=== PATIENT | male | born 2000 | race Caucasian/White ===

== ENCOUNTER 2025-01-21 03:39 | Inpatient (IN) | payer MEDICARE, SELFPAY ==
[2025-01-20 21:37] VITALS: BP 90/65
[2025-01-20 22:00] VITALS: BP 93/72
[2025-01-20 22:06] VITALS: BMI 20.1
[2025-01-20 22:29] LABS: Hematocrit 27.2 % (39.0-52.0); Hemoglobin 9.1 g/dL (13.0-18.0); Mean Corp Hgb Conc. 33.5 g/dL (33.0-37.0); Mean Corpuscular Volume 97.8 fL (80.0-94.0); Nucleated Red Blood Cells % 0 % (-); Platelet Count 201 10^3/uL (130-400); Red Cell Dist. Width 13.4 % (11.5-14.5)
[2025-01-20 22:39] LABS: INR 1.09; PT 14.4 Sec (11.4-14.6)
[2025-01-20 22:42] LABS: ALT (SGPT) 19 U/L (0-50); AST (SGOT) 21 U/L (17-59); Albumin 4.2 g/dl (3.5-5.0); Alkaline Phosphatase 133 U/L (38-126); Blood Urea Nitrogen 73 mg/dl (9-20); Calcium 9.5 mg/dl (8.4-10.2); Carbon Dioxide 29 mmol/L (22-30); Chloride 87 mmol/L (98-107); Glucose 81 mg/dl (70-99); Potassium 5.4 mmol/L (3.5-5.1); Sodium 129 mmol/L (135-145); Total Protein 6.6 g/dl (6.3-8.2)
[2025-01-20 22:47] LABS: Ammonia < 9 umol/L (9-30)
[2025-01-20 22:54] LABS: Estimated Creatinine Clearance 7 ml/min; Troponin I 0.104 ng/ml; eGFR 4.69
[2025-01-20 23:00] VITALS: BP 93/66
--- NOTE | 2025-01-20 23:15 | ED.GENMED ---
History of Present Illness
General
Chief Complaint: Cardiac Symptoms
Source: patient
Exam Limitations: none
Time Seen by Provider: 01/20/25 22:54
History of Present Illness
History of Present Illness:
See MDM
Past History
Past History
ED Past Medical History: CHF and Other (ESRD)
ED Past Surgical History: None
Social History
Tobacco: Non-smoker
Alcohol: None
Phy Exam
Physical Exam
Physical Exam:
See MDM
Course
Orders/Labs/Results
Orders:
Orders
01/20/25 21:31
Electrocardiogram (*1) Urgent
Reason for Study: Chest Pain
EKG- Treatment ONCE
01/20/25 22:17
Complete Blood Count/With Diff Urgent
Comprehensive Metabolic Panel Urgent
Lactic Acid Q4H
Comment: WITH 1ST SET OF BLOOD CULTURES,CANCEL 2ND LACTIC ACID IF FIRST <2
NT-proBNP Urgent
Prothrombin Time Urgent
Troponin I Urgent
Blood Culture Urgent
KIMMIE Source: Blood/Venous
Specimen Description:
01/20/25 22:25
Ammonia Urgent
01/20/25 23:51
Lorazepam [Ativan] 1 mg PO NOW STA
01/21/25 00:00
CT Chest PE Study Urgent
Reason For Exam: SOB, tachycardic
01/21/25 01:43
Heparin 4,800 units IV NOW STA
Nursing to Place Non Medication Order As Directed
Physician Order: PTT 6 hours after initial start of Heparin infusion
01/21/25 01:45
Heparin 73768 Units/250 ml 25,000 units in 250 ml IV PER PROTOCOL
Weight to be used for heparin protocol in kilograms (kg):: 59.9
Protocol:: DVT/PE
PTT Goal Range to be used:: PTT 73 to 111 seconds
Order type:: Initial
INITIAL Infusion Dose (UNITS/KG/hr) & then follow protocol:: 18 units/kg/hr
Infusion Dose in UNITS/hr & then follow protocol (UNITS/hr):: 1,100
INFUSION RATE in mL/hr & then follow protocol (mL/hr):: 11
For DVT/PE algorithm, re-bolus for low PTT?: Yes
PTT less than or equal to 64 seconds:: Re-bolus 80 units/kg (max 10,000units). Increase by 200 units/hr
(+ 2mL/hr)
PTT 64.1 to 72.9 seconds:: Re-bolus 40 units/kg (max 5,000 units). Increase by 100 units/hr
(+ 1mL/hr)
PTT 73 to 111 seconds:: Target Range. No change in rate.
PTT 111.1 to 130.9 seconds:: Decrease rate by 100 units/hr (- 1 mL/hr)
PTT 131 to 199.9 seconds:: HOLD for 1 hr. Then decrease by 200 units/hr (- 2mL/hr)
PTT greater than or equal to 200 seconds:: HOLD for 2 hrs & Notify Provider. Then decrease by 200 units/hr
(- 2mL/hr)
Lab follow-up:: Each change, PTT q6h until 2 consecutive are therapeutic. Then
PTT daily.
01/21/25 01:46
Add On- LAB Urgent
Tests Added?: APTT
01/21/25 01:59
Heparin 4,800 units IV PRN PRN
01/21/25 02:00
Heparin 2,400 units IV PRN PRN
Abnormal Lab Results
01/20/25 01/20/25
22:17 22:25
RBC 2.78 L 10^6/uL
(4.70-6.10)
Hgb 9.1 L g/dL
(13.0-18.0)
Hct 27.2 L %
(39.0-52.0)
MCV 97.8 H fL
(80.0-94.0)
MCH 32.7 H pg
(27.0-31.0)
MPV 10.6 H fL
(7.4-10.4)
Absolute Lymphs (auto) 0.9 L 10^3/uL
(1.2-3.4)
Lymphocytes % 15.5 L %
(20.5-51.1)
Sodium 129 L mmol/L
(135-145)
Potassium 5.4 H mmol/L
(3.5-5.1)
Chloride 87 L mmol/L
(98-107)
BUN 73 H mg/dl
(9-20)
Creatinine 13.7 H* mg/dL
(0.7-1.3)
Alkaline Phosphatase 133 H U/L
(38-126)
Ammonia < 9 L umol/L
(9-30)
Troponin I 0.104 H* ng/ml
01/20/25 22:17
01/20/25 22:17
Vital Signs
Initial and Last Documented VS:
Initial Vital Signs
Temp Pulse Resp BP Pulse Ox
97.5 F 108 22 90/65 100
01/20/25 21:37 01/20/25 21:37 01/20/25 21:37 01/20/25 21:37 01/20/25 21:37
Last Documented Vital Signs
Temp Pulse Resp BP Pulse Ox
97.5 F 108 21 93/66 100
01/20/25 21:37 01/21/25 00:51 01/20/25 23:45 01/20/25 23:00 01/20/25 23:17
MDM/Problems Addressed
Differential Diagnosis Includes:
Note:
CHIEF COMPLAINT(S)
Shortness of breath, chest pressure, persistent cough, and numbness in fingertips.
HISTORY OF PRESENT ILLNESS
The patient is a 24-year-old male with a history of chronic kidney disease, currently undergoing peritoneal dialysis at home. He presents with complaints of a persistent cough, chest pressure, and difficulty breathing lasting for two weeks. The
patient describes the sensation as feeling like he has run a mile continuously, and his heart rate feels elevated constantly. He reports the cough is accompanied by chest pain and pressure that make it difficult to breathe. Additionally, the patient
has been experiencing numbness in his fingertips for several months. He expresses concern about not receiving adequate care, highlighting his dissatisfaction with his current healthcare providers at [facility] not thoroughly investigating his
symptoms. He mentions a past episode of fluid build-up in his lungs about a year and a half ago that required admission for increased dilaysis. The patients recent hemoglobin was noted at 9.1 g/dL, and potassium levels were elevated, which is
typical considering his renal condition. He has been experiencing shortness of breath more frequently and reports that he used to manage stairs without issues, but now becomes breathless easily, which has changed in the past four weeks. There is no
reported history of black or red stools to suggest gastrointestinal bleeding.
PAST MEDICAL AND SURGICAL HISTORY
- Chronic kidney disease with current peritoneal dialysis
- History of anemia managed with erythropoietin
- Past fluid build-up in the lungs requiring intervention
CHRONIC MEDICAL CONDITIONS SIGNIFICANTLY AFFECTING CARE
Chronic conditions affecting care:
- Chronic kidney disease
- Anemia
- Electrolyte imbalance related to renal dysfunction
SOCIAL DETERMINANTS AFFECTING HEALTH
The patient reports dissatisfaction with current healthcare providers, citing ineffective care and poor communication, which contributes to his sense of not being adequately treated.
PHYSICAL EXAM
General: Weak and frail
Skin: Warm, dry. Ashen color
Head: Normocephalic, atraumatic
Neck: Appears supple, trachea midline.
Eyes, Ears, Nose, Mouth, and Throat: Moist mucous membranes
Cardiovascular: No signs of cyanosis. Tachycardic
Respiratory: Respirations are non-labored. Lungs appear clear
Abdomen: Non-distended
Musculoskeletal: No deformities
Neurological: No focal neurological deficit observed.
Psychiatric: Cooperative, appropriate mood and affect.
PLAN
A chest X-ray has been ordered, with consideration of a CT scan to evaluate for pulmonary embolism or other causes of dyspnea due to atypical lung examination findings. The likelihood of admission for further monitoring and consultations with
nephrology and cardiology. Plan includes potential adjustment of dialysis to address possible fluid overload and further evaluation of heart function due to concern of heart failure exacerbation secondary to renal condition.
Patient states he has not made urine in 3 years. Because of this, we will obtain CT regardless of the IV contrast
DIFFERENTIAL DIAGNOSIS
The Differential Diagnosis includes, in no particular order and is not limited to:
- Pulmonary embolism
- Congestive heart failure exacerbation
- Pneumonia
- Fluid overload
- Anemia-related fatigue
- Electrolyte imbalance
- Asthma
- Anxiety-related shortness of breath
- Interstitial lung disease
- Cardiorenal syndrome
SUMMARY OF ENCOUNTER
The patient was seen due to concerns of shortness of breath, chest pressure, and symptoms potentially related to chronic renal failure and associated complications. The patient expressed dissatisfaction with current treatment and healthcare provider
approach, prompting an emergency evaluation. [place] interventions included discussions about management and potential changes in dialysis, pending imaging to further assess lung and cardiac status, and laboratory evaluations to elucidate contributing
factors.
DISPOSITION
Admit for further evaluation and treatment.
MANAGEMENT OF THE PATIENTS CARE WAS DISCUSSED WITH
Consultations with nephrology and cardiology planned to evaluate and manage the patients complex situation, considering significant findings and chronic kidney disease management needs.
MEDICAL DECISION MAKING
- Number and Complexity of Problems Addressed:
Chronic conditions affecting care: Chronic kidney disease, anemia, electrolyte imbalance related to renal dysfunction.
- Data:
Category 1
- Laboratory tests pending, such as cardiac markers.
- Chest x-ray ordered, with possible CT scan to follow.
Category 2
- Review of prior external records indicated issues of fluid in lungs and chronic heart-related complications.
Category 3
- Discussion of management with nephrology and cardiology regarding chronic kidney disease complications and potential need for increased dialysis or cardiac evaluation.
- Risk:
Consideration of Admission/Observation: Escalation of care considered due to the complexity and risk posed by the patients symptoms and existing comorbid conditions. The patient is deemed safe for admission, with workup revealing significant issues
needing inpatient care for fluid overload management, cardiac monitoring, and potential adjustment of dialysis regimen as symptoms are not controlled in outpatient settings.
DIAGNOSIS
- Congestive heart failure exacerbation, likely cardiorenal syndrome (ICD-10: I50.9)
- Chronic kidney disease stage 5, on dialysis (ICD-10: N18.6)
- Anemia of chronic disease (ICD-10: D63.1)
- Dyspnea, unspecified (ICD-10: R06.00)
SUMMARY OF ENCOUNTER
The patient, a 24-year-old male with a history of chronic kidney disease and anemia, presented with shortness of breath and chest pain. An elevated troponin and BNP were noted, likely related to his renal disease. Due to persistent symptoms, a CT
scan was performed, revealing evidence of pulmonary embolism. Though possibly chronic, the patients symptomatic presentation warranted initiation of IV heparin.
DISPOSITION
Admit for further evaluation and treatment.
ASSESSMENT
The patient likely suffers from a pulmonary embolism in the setting of chronic kidney disease and significant anemia, potentially exacerbating the patients current symptoms.
EMERGENCY TREATMENTS ADMINISTERED
Initiated IV heparin for suspected pulmonary embolism.
MANAGEMENT OF THE PATIENTS CARE WAS DISCUSSED WITH
Consultations planned with nephrology and cardiology for comprehensive management of renal disease complications and acute pulmonary issues.
PLAN
Continue IV heparin and admit for further monitoring and management. Engage nephrology and cardiology consultations for assessment and management of chronic kidney disease, anemia, and cardiopulmonary complications.
INDEPENDENT REVIEW OF LABS AND INTERPRETATION OF TESTS
My independent review of cardiac enzymes showed elevated troponin levels.
My independent review of BNP indicated elevated levels consistent with chronic kidney disease effects.
My independent interpretation of the CT scan confirms the presence of pulmonary embolism.
MEDICATION RECONCILIATION
IV heparin initiated for anticoagulation therapy to address the pulmonary embolism.
MEDICAL DECISION MAKING
- Complexity of Data Reviewed: Chronic conditions affecting care include chronic kidney disease, anemia, and electrolyte imbalance related to renal dysfunction. Differential diagnoses considered were pulmonary embolism, congestive heart failure
exacerbation, pneumonia, fluid overload, anemia-related fatigue, electrolyte imbalance, asthma, anxiety-related shortness of breath, interstitial lung disease, and cardiorenal syndrome.
- Data:
Category 1
Reviewed lab tests: troponin, BNP.
Category 3
Consulted with nephrology and cardiology.
DIAGNOSIS
- Pulmonary embolism (ICD-10: I26.99)
- Chronic kidney disease stage 5, on dialysis (ICD-10: N18.6)
- Anemia of chronic kidney disease (ICD-10: D63.1)
*Pulse Oximetry
SaO2: 100
Oxygen Mode of Delivery: Room air
Patient hypoxic: no
*Critical Care Note
Total Time (30-74mins, 75-104mins- exclusive of procedures): 33 min
comment:
The high probability of a clinically significant, sudden or life threatening deterioration of the cardiopulmonary system(s) required my full and direct attention, intervention and personal management. The aggregate critical care time was 33 minutes.
This time is in addition to time spent performing reported procedures but includes the following:
[x] Data Review and interpretation
[x] Patient assessment and monitoring of vital signs
[x] Documentation
[x] Medication orders and management
ED Attending Note
-
Portions of this chart may have been created with voice recognition software.� Occasional wrong word or��sound alike� substitutions may have occurred due to the inherent limitations of voice recognition software.
Discharge Plan
Departure
Patient Disposition: Admit
Date of Disposition: 01/21/25
Time of Disposition: 01:45
Admit to: Med/Surg and Telemetry
Presentation/result/management discussed w/ accepting MD/DO: Hospitalist
Discharge Problem:
Pulmonary embolism, Acute hyperkalemia
Referrals:
UNKNOWN - PT DOES,NOT KNOW [Family Provider]
Interventions
Interventions:
*Risk Screen - Suicide Last Done: 01/20/25 21:37
*General Assessment Last Done: 01/20/25 21:37
*Neglect/Abuse Screening Last Done: 01/20/25 21:37
*ED- Fall Risk Assessment Last Done: 01/20/25 22:04
*ED COVID-19 Vaccine History Last Done: 01/20/25 21:37
*ED Influenza Vaccine History Last Done: 01/20/25 21:37
ED- Pulmonary Assessment Last Done: 01/20/25 21:58
ED- Cardiac Assessment Last Done: 01/20/25 21:58
Discharge Date and Time
Print Language: KYRGYZ
[2025-01-21] VITALS (17 sets, daily range): BP systolic 70–106; BP diastolic 45–71; BMI 19.2
[2025-01-21] MEDS: ATIVAN 1 MG PO (00:11)
[2025-01-21] MEDS: SUBLIMAZE 25 MCG IV (02:12)
[2025-01-21] MEDS: HEPARIN 4800 UNITS IV (02:14)
[2025-01-21] MEDS: HEPARIN 25000 UNITS/250 ML IV (02:19)
--- NOTE | 2025-01-21 03:29 | HPS.HSE ---
Family Physician
-
Family Physician: NOT KNOW UNKNOWN - PT DOES
Chief Complaint
-
CALDWELL, Fatigue
History of Present Illness
Patient is a 24y M with PMH significant for ESRD and HFrEF who presents to ED complaining of worsening CALDWELL and fatigue. Patient has been cared for at [facility] and decided to present to for an alternate opinion. He has been dialysis
dependent for much of his life. He is s/p prior renal transplant which lasted for about 4 years (failed due to non-compliance with antirejection med regimen). He was started on HD again following that and converted to PD about 2 1/2 months ago.
Patient notes that he developed cardiomyopathy / CHF with LVEF of about 20%. Patient indicates that this was attributed to his hemodialysis and thus the change to PD.
History from the patient at this time is somewhat limited by his willingness to participate. He notes that he is extremely tired and is agitated / aggravated by questioning.
Medical History
Past Medical History
Past Medical History: Reports Other
Additional Past Medical History:
ESRD ([facility]) - HD dependent, Renal transplant (4 years), HD dependent, PD dependent (past 2 1/2 months)
HFrEF (reportedly 20% LVEF)
Anxiety / Depression
Malnutrition
History of PE s/p 6 months of Eliquis
Past Surgical History: Reports Other
Additional Past Surgical History:
Renal Biopsies x 3
Renal Transplant
Multiple Tunneled HD Catheters
LUE AVF
Ligation of AVF
Sinus Surgery
Social History
Tobacco: Vaping (Daily vape use.)
Alcohol: None
Drug: Other (Medical marijuana card with regular / daily use.)
Family History
Family History: Not pertinent
Allergies / Home Medications
Allergies reflects when Allergies were last updated in [employer].
Home Medications with original date entered in [employer]
Allergy/Medication List:
Patient is unable to state his current medications.
No list available and he is currently unable to access his [facility] portal.
Review of Systems
-
History Source: Patient
A 12 point ROS was completed and negative except as noted: Yes
Constitutional: Reports Fatigue; Denies Fever or Chills
EENT: Denies Sore Throat
Respiratory: Reports Trouble Breathing; Denies Cough
Cardiac: Reports Palpitations; Denies Chest Pain, Diaphoresis or Syncope
Abdomen/GI: Denies Abdominal Pain, Nausea, Vomiting or Diarrhea
Musculoskeletal: Denies Joint Pain or Edema
Neurological: Reports Dizzy and Weakness; Denies Headache
Psych: Reports Depression and Anxiety
Physical Exam
Vital Signs
Vital Signs
Temp Pulse Resp BP Pulse Ox
97.5 F 102 20 93/66 100
01/20/25 21:37 01/21/25 02:30 01/21/25 02:30 01/20/25 23:00 01/20/25 23:17
Physical Exam
General: Other (24y chronically ill-appearing gentleman. Sleeping comfortably. Somewhat restless / agitated when awakened - but falls quickly back to sleep when undisturbed.)
HEENT: Other (Neck supple. Dry MM. No JVD.)
Respiratory: Clear; No Wheezes, Rales or Rhonchi
Cardiac: S1/S2 and Tachycardia; No Murmur
GI: Other (Tenderness LLQ. PD catheter in place without erythema / induration at insertion.)
Musculoskeletal: No Clubbing, No Cyanosis and No Edema
Neuro: AO x 3 and Nonfocal/grossly intact
Laboratory Results
-
01/20/25 22:17
01/20/25 22:17
Laboratory Results
PT 14.4 Sec (11.4-14.6) 01/20/25 22:17
INR 1.09 01/20/25 22:17
APTT Cancelled 01/21/25 03:22
Lactic Acid 1.2 mmol/L (0.7-2.0) 01/20/25 22:17
Total Bilirubin 0.6 mg/dl (0.2-1.3) 01/20/25 22:17
AST 21 U/L (17-59) 01/20/25 22:17
ALT 19 U/L (0-50) 01/20/25 22:17
Alkaline Phosphatase 133 U/L (38-126) H 01/20/25 22:17
Troponin I 0.104 ng/ml H* 01/20/25 22:17
Impression/Plan
-
A/P: Patient is a 24y M with PMH significant for ESRD on PD, HFrEF and anxiety / depression who presents to ED complaining of CALDWELL and fatigue.
LLL Pulmonary Embolism
- Admit for further evaluation and treatment.
- Based on CT report, current SpO2, etc - suspect that this represents residual / chronic thrombosis.
- Patient reports prior PE treated with 6 months of Eliquis.
- Continue IV heparin for now.
- Check Echo.
- May benefit from chronic anticoagulation therapy.
- Suspect there are other etiologies for his presenting complaints of CALDWELL and fatigue.
ESRD
- Long-standing ESRD on HD and changed to PD about 2 1/2 months ago.
- Ascites seen on CT scan c/w PD therapy.
- Labs noted with multiple electrolyte derangements.
- Prior h/o renal transplant which lasted about 4 years and failed due to non-compliance with antirejection med regimen.
- Nephrology evaluation for dialysis needs during acute stay.
- Follow I/Os, daily weights, etc.
Chronic HFrEF
- ? acute / subacute component resulting in CALDWELL / fatigue.
- Patient reports EF of 20%. Update Echo. Send to [facility] for records for review.
- Seems likely that recent increase in symptoms correlates with change to PD and ? less efficient dialysis.
- Cardiology evaluation for additional recommendations.
Abnormal Troponin
- Unknown type. Unknown baseline in this patient with ESRD.
- EKG with T wave inversions / NSST-T changes in lateral leads. No prior tracings here for comparison.
- Follow troponin to peak.
- Cardiology evaluation as noted above.
Anemia
- Suspect anemia of chronic disease / CKD - but no prior values for comparison.
- Follow H&H for any changes.
Generalized Anxiety / Depression
- Significant component of anxiety. Ativan PRN for now.
- Review medications in AM when able and resume any psychotropic medications.
- Consider formal Psych evaluation.
Continuity of Care
- Send for records from [facility] for review.
- Need formal med rec with Pharmacy in AM.
- Significant gaps in known care plan, history, etc that need to be addressed.
DVT Prophylaxis: On therapeutic heparin at present.
Code Status: Full
--- NOTE | 2025-01-21 06:15 | PTCARENOTE ---
Pt received from ED on a stretcher. Pivoted from stretcher to bed; weak and dyspneic on exertion. Pox 92-98% on room air, resp 18-22. Hypotensive 85/61 with MAP 69. Sinus tachycardia on telemetry with rates in low 100's. Complaining of constant
left-sided chest pain radiating to his back, exacerbated by deep breaths; pain has been persistent for 2 weeks. Heparin drip infusing at 1100 units/hr via right upper arm peripheral site. Messaged house provider for pain med request. Pt oriented to
the room. Call ortega in reach. Bed in lowest position. Continuing to monitor
[2025-01-21] MEDS: ROXICODONE 5 MG PO (06:47)
[2025-01-21 08:09] LABS: APTT 95.5 Sec (23.4-35.0)
--- NOTE | 2025-01-21 08:19 | PTCARENOTE ---
Assumed care of patient this AM. Patient arrived to unit 6AM. Patient arrived with heparin drip infusing at 1100units 11mls/hr. for PE. PTT assessment at 8:15 95.5. Next PTT at 14:15. Patient is drowsy but arousable. Easily irritated by
questions. Report left sided chest pain which radiates to the back. Pain was 10/10 one time roxicodone given pain is now 6/10. Patient is on RA with sao2 99% denies shortness of breath while in bed. Lungs clear but diminished with shallow breath
sounds. SR with HR 90-low 100's. Soft BP's 90/53. Afebrile. Will continue to monitor frequently.
[2025-01-21 08:30] LABS: Troponin I 0.095 ng/ml
--- NOTE | 2025-01-21 08:35 | CON.CAR ---
Addendum entered and electronically signed by Wero Celestin MD 01/21/25 10:31:
If no other etiology found for his chest pain, we could empirically treat for pericarditis.
Addendum entered and electronically signed by Wero Celestin MD 01/21/25 10:28:
I saw and examined the patient.
The SIDING INSTALLER's note was reviewed and I agree with the note.
Comment:
24-year-old man with ESRD status post failed renal transplant, resumed on dialysis (initially hemodialysis but switched to peritoneal 2 months ago), HFrEF (reported EF 20%), prior PE who presents with dyspnea on exertion and fatigue. He gets all of
his care at [facility] and sees cardiology there (Dr. Jc). He has had 2 hospitalizations in their health system in the past 1 month for similar symptoms and he says they did not do any workup and just discharged him. He is here for a
second opinion. His main complaint is dyspnea with minimal exertion and fatigue. He tells me he does not take any heart medications. He was previously on midodrine but was told to stop taking this a few months ago because his blood pressures were
good. He has pleuritic, positional chest pain at rest.
Physical exam: uncomfortable appearing, regular rate/rhythm, no murmurs/rubs/gallops, clear lungs bilaterally, no lower extremity edema
Labs reflect ESRD. Lactate normal. proBNP >27k. troponin 0.104 -> 0.095. TSH 2.27.
ECG: sinus tachycardia with first-degree AV block, borderline LVH, incomplete LBBB, long QT (QTc 482 ms) --no prior for comparison but unchanged while he has been here
Cardiomyopathy: we have requested records from [facility]. Fortunately he does not appear to be in a CHF exacerbation or low output heart failure. Suspect GDMT is limited by baseline hypotension. Check echo on Thursday.
Chest pain: pleuritic and positional. Troponin elevation is normal for his end-stage renal disease. ECG nonischemic and not consistent with pericarditis. CT PE negative for acute PE. Very low suspicion for ACS. Okay to stop trending troponins
as it has already downtrended. Pain control per primary team.
Pulmonary embolism: CT with no acute PE. Patient is on IV heparin. Pulmonary consulted.
Original Note:
Consultation
Consultation Request
Date/Time Consultation Requested: 01/21/2025 6a
Date/Time Consultation Performed: 01/21/25 8:30a
Requesting Provider: Dr. Keys
Performing Provider: AARON Man for Dr. Celestin
Reason for Consultation: cardiomyopathy
Medical History
-
Chief Complaint: CALDWELL and fatigue
History of Present Illness:
Mr. Lantigua is a 24 yo male with ESRD status post renal transplant 4 years ago (failed due to noncompliance with anti-rejection medications) resumed HD and switched to PD 2 months ago, PD dependent, cardiomyopathy with HFrEF 20% (all of his care has
been at [facility]), history of PE treated with Eliquis for 6 months (unsure of when PE occurred), anxiety/depression, and chronic anemia, who presents to the ER with complaints of dyspnea on exertion and fatigue for 2 weeks. He came to [facility]
for an alternate opinion. Chest CT negative for acute pulmonary embolism and he is admitted to the hospitalist service for further evaluation and treatment. We are consulted for cardiomyopathy/chronic HFrEF, abnormal troponin in the setting of
ESRD, EKG with nonspecific ST/T changes and no prior EKG for comparison. Records from [facility] system have been requested. He c/o left sided chest pain that is constant. 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
since his BP was stable. He is a poor historian and is unable to provide his medications or medical history.
Chest CT: No evidence of acute PE, probable sequelae of remote/chronic PE in the medial left lung base subsegmental pulmonary artery, cardiomegaly with LV dilatation, no PNA, mild upper abdominal ascites.
Past Medical History
Past Medical History: Other (As above)
Past Surgical History: Other (As above)
Social History
Tobacco: Smoker (Daily vaping)
Drug: Marijuana (Medical marijuana card with daily use)
Personal: Single
Living: With Family (dad)
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
Family History
Family History: Reviewed & Not Pertinent
Allergies / Home Medications
Allergy/AdvReac Type Severity Reaction Status Date / Time
metoclopramide (From Reglan) Allergy Unknown Verified 01/20/25 21:50
prochlorperazine (From Allergy Unknown Verified 01/20/25 21:50
Compazine)
diphenhydramine (From AdvReac Unknown Verified 01/20/25 21:50
Benadryl)
�Medication �Instructions �Recorded �Confirmed �Type
Unobtainable 01/21/25 01/21/25 History
Review of Systems
-
History Source: Patient
All other systems: Negative unless noted
Physical Exam
Vital Signs
Temp Pulse Resp BP Pulse Ox
97.7 F 83 16 90/53 94
01/21/25 06:20 01/21/25 08:15 01/21/25 08:15 01/21/25 08:10 01/21/25 08:15
Lab Results
01/20/25 22:17
01/20/25 22:17
Troponin I 0.095 ng/ml H* 01/21/25 07:27
Hqr-K-Kzkyqmzzgvh Pept > 35522 pg/ml 01/20/25 22:17
Physical Exam
General: Other (appears chronically ill)
HEENT: Normocephalic
Respiratory: Clear and Non Labored Respirations
Cardiac: S1/S2 and Regular Rhythm (tachycardia low 100s)
Breast: Deferred by me
GI: Soft, Non Tender and Normal Bowel Sounds
Rectal: Deferred by Provider
Genito-urinary: No Costovertebral Tender
Musculoskeletal: No Clubbing, No Cyanosis and No Edema
Skin: Warm and Dry
Neuro: AO x 3 (keeps his eyes closed during interview, agitated from answering questions and tearful c/o chest pain)
Hematologic/Lymphatic: No Lymphadenopathy
Psych: Calm
Impression / Plan
-
Cardiomyopathy/HFrEF - EF 20% by patient report.
- appears euvolemic, volume managed by PD.
- he does not know his prior medications, admits to stopping midodrine 4 months ago as instructed by his neurologist.
- request records from [facility].
- check an echo.
- he does not weigh himself at home.
- GDMT likely limited due to ESRD and hypotension at baseline.
H/o pulmonary embolism - unsure of timing and was taking Eliquis.
- currently on IV heparin.
- Pulmonary consulted.
ESRD - PD dependent currently, switched from HD, unsure of timing.
- Status post renal transplant 4 years ago, failed due to noncompliance with antirejection medications and now PD dependent.
- Followed by nephrology at [facility].
- Nephrology consulted here.
Abnormal troponin - initial troponin 0.104, then 0.095.
- already trended down.
- c/o constant left chest pain, worse with palpation/movement.
- in the setting of ESRD.
- EKG with nonspecific ST/T changes lateral, no comparison available, records requested.
Anemia - acute on chronic.
- follow.
Anxiety/depression - chronic, unsure if taking meds as an outpatient.
Data Reviewed
-
EKG: Tracing Personally Visualized and interpreted (Sinus tachycardia with first-degree AV block, incomplete LBBB, ST and T wave abnormality lateral, QTc 480ms)
CT Scan: Report Reviewed by me (Chest: No evidence of acute PE, probable sequelae of remote/chronic PE in the medial left lung base subsegmental pulmonary artery, cardiomegaly with LV dilatation, no PNA, mild upper abdominal ascites)
[2025-01-21 09:01] LABS: Iron 69 ug/dl (49-181)
[2025-01-21 09:02] LABS: Ferritin 846.0 ng/ml (17.9-464.0)
[2025-01-21 09:10] LABS: Total Iron Binding Capacity 211 ug/dl (261-462)
[2025-01-21 09:17] LABS: Vitamin B12 564 pg/ml (239-931)
--- NOTE | 2025-01-21 10:07 | W.PN.UPDATE ---
Update Note
Progress Note Update
Seen and admitted by Dr. Keys this morning.
Patient with history of single functioning kidney from apparently and had FSGS of the functioning kidney and needed transplant which was given by his father and unfortunately got rejected. He went on hemodialysis after that and is switched to
peritoneal dialysis 2 months ago. He also had heart failure with reduced EF. He had history of prior PE treated with anticoagulation.
Patient normally follows in [facility] but now presented here for the first time. He does not remember all the medication he normally takes but he is going to check his patient portal and let us know.
His predominant symptom was extremely short of breath with minimal exertion. Complaints of chest pains and abdominal pains especially worse with coughing.
Chest CT showed possible sequela of chronic left lower lobe PE and started on IV heparin. He blood pressure on the lower side unclear what his baseline is. Systolic more than 90 this morning. Not tachycardic now. Consult pulmonary for the need
of further anticoagulation.
Cardiology and nephrology consults pending.
[2025-01-21 10:33] LABS: Folate 4.6 ng/ml (2.76-20)
[2025-01-21 10:35] LABS: Glycohemoglobin (HgbA1c) 5.1 % (4.0-5.9)
--- NOTE | 2025-01-21 11:03 | PTCARENOTE ---
Lantus 20 units given as ordered. Insulin drip discontinued. Last BS 120. Patient had breakfast and meal insulin. Will recheck BS at 11:30. Most likely patient will be d/c to home today.
--- NOTE | 2025-01-21 11:27 | W.CON.NEPH ---
Consultation
-
Date/Time Consultation Requested: 01/21/25 0608
Date/Time Consultation Performed: 01/21/25 1127
Requesting Provider: Kade Ron
Performing Provider: Luma Montanez
Reason for Consultation: ESRD on PD
Medical History
-
Chief Complaint: SOB
History of Present Illness:
24y M with PMH significant for ESRD and HFrEF 20% who presents to ED complaining of worsening CALDWELL and fatigue. Patient has been cared for at [facility] and decided to present to for an alternate opinion.
He reports on dialysis since age of 16 from FSGS, subsequently received kidney transplant donated by for his father however due to his noncompliance it only worked for 2-3 years and started on hemodialysis within last 1 year. However with his CHF
symptoms felt that his AV fistula was the reason and hence was ligated and patient got switched to PD around 2.5 months ago. Also note he has low blood pressures previously was on midodrine. His home unit is in [place]. Most of his doctors are
at [facility], infact had 2 admits in last 1month. Also noted from the staff that he has been asking for pain medications. He complains about chest pain, shortness of breath, abdominal discomfort. No fevers or coughing or chills. He has no urine
output for years. His last PD was day before night uses cycler all 2.5 with 2 L of fluid volume, extreneal as last fill to avoid pain. We do not have his medication list currently. A CT chest was obtained and shows sequelae of PE. He was
started on heparin drip. Records request sent to [facility]. Nephrology asked to see him for resuming PD.
Past Medical History
ESRD (FSGS) - HD dependent, Renal transplant (4 years), HD dependent, PD dependent (past 2 1/2 months),
HFrEF (reportedly 20% LVEF)
Anxiety / Depression
Malnutrition
History of PE s/p 6 months of Eliquis
Past Surgical History: Other (Renal Biopsies x 3 Renal Transplant Multiple Tunneled HD Catheters LUE AVF Ligation of AVF Sinus Surgery)
Social History
Tobacco: Smoker
Alcohol: None
Drug: Marijuana ([facility])
Living: With Family (father)
Family History
no ckd
Allergies / Home Medications
Allergy/AdvReac Type Severity Reaction Status Date / Time
metoclopramide (From Reglan) Allergy Unknown Verified 01/20/25 21:50
prochlorperazine (From Allergy Unknown Verified 01/20/25 21:50
Compazine)
diphenhydramine (From AdvReac Unknown Verified 01/20/25 21:50
Benadryl)
�Medication �Instructions �Recorded �Confirmed �Type
Unobtainable 01/21/25 01/21/25 History
Review of Systems
-
All other systems: Negative unless noted
Physical Exam
Vital Signs
Vital Signs
Temp Pulse Resp BP Pulse Ox
97.5 F 108 29 89/58 98
01/21/25 11:00 01/21/25 11:00 01/21/25 11:00 01/21/25 10:19 01/21/25 11:00
Lab Results
WBC 5.9 10^3/uL (4.8-10.8) 01/20/25 22:17
RBC 2.78 10^6/uL (4.70-6.10) L 01/20/25 22:17
Hgb 9.1 g/dL (13.0-18.0) L 01/20/25 22:17
Hct 27.2 % (39.0-52.0) L 01/20/25 22:17
Plt Count 201 10^3/uL (130-400) 01/20/25 22:17
Sodium 129 mmol/L (135-145) L 01/20/25 22:17
Potassium 5.4 mmol/L (3.5-5.1) H 01/20/25 22:17
Chloride 87 mmol/L (98-107) L 01/20/25 22:17
Carbon Dioxide 29 mmol/L (22-30) 01/20/25 22:17
BUN 73 mg/dl (9-20) H 01/20/25 22:17
Creatinine 13.7 mg/dL (0.7-1.3) H* 01/20/25 22:17
eGFR 4.69 01/20/25 22:17
Glucose 81 mg/dl (70-99) 01/20/25 22:17
Calcium 9.5 mg/dl (8.4-10.2) 01/20/25 22:17
Lbc-X-Yfjakdmoyir Pept > 38360 pg/ml 01/20/25 22:17
Albumin 4.2 g/dl (3.5-5.0) 01/20/25 22:17
Physical Exam
General: Awake, Alert, Oriented, AOx3, No Distress and Nontoxic
HEENT: EOMI, Anicteric, Conjunctivae Clear and Facial Symmetry
Respiratory: Clear, Normal Excursion and Nonlabored Respirations
Cardiac: S1/S2, Regular Rate/Rhythm and Murmur
Breast: Deferred by me
Abdomen: Soft, Nontender and Nondistended
Rectal: Deferred by Provider
Musculoskeletal: No Cyanosis and Edema (trace)
Skin: No Rash
Neuro: Nonfocal/Grossly Intact
Psych: Appropriate
Vascular Access: Other (left abd PD catheter clean )
Data Reviewed
-
Labs: Labs Reviewed by me and Discussed with Patient
Assessment/Plan
-
IMP:
LLL Pulmonary Embolism-chr
ESRD on PD-[place]
HYponatremia
Hyperkalemia
Hypotension
Prior h/o renal transplant which lasted about 4 years and failed due to non-compliance
Chronic HFrEF EF 20%
Abnormal Troponin
Anemia
Generalized Anxiety / Depression
Plan:
A/w sob CT noted chr PE, recent switch to PD due to suspected worsneing CHF and AVF ligated
no sig hypervolemia on exam
resume PD all 2.5, Q4h exchange and FV 2lit
strict renal diet and FR for electrolyte issues-expect to see some improvement
Bp are very soft with known Reduced EF , add prn midodrine and await records from [facility]
anemia -adequate fe stores, had FABRICIO 3day DOCTOR OF CHIROPRACTIC
avoid morphine in setting of ESRD , dilaudid is safe
obtain home med list
d/w pt in detail
[2025-01-21] MEDS: MORPHINE SULFATE 1 MG IV (12:50)
[2025-01-21] MEDS: FLUSH (NSS) 1 FLUSH IV ×2 (12:52→16:48)
--- NOTE | 2025-01-21 13:30 | CON.PUL ---
Consultation
Consultation Request
Date/Time Consultation Requested: 01/21/2025 - 101
Date/Time Consultation Performed: 01/21/2025 - 0
Requesting Provider: Dr. Barrett
Performing Provider: Dr. Akhtar
Reason for Consultation: Suspected chronic PE
Medical History
-
Chief Complaint: Chest pain
History of Present Illness:
24-year-old male with history of ESRD on PD with previously single functioning kidney complicated by FSGS s/p living donor renal transplant (father) complicated by rejection s/p HD which was then switched to PD about 2-2-1/2 months ago, history of
PE s/p AC with Eliquis for 6 months, chronic HFrEF, anxiety/depression who presents with worsening cough and left lower anterior chest pain for 2 weeks. He thinks that he may be dealing with a cold. He usually gets his care done at [facility]
but did not want to go there. He felt that he was having another PE as he was experiencing focal pain that was severe on his left lower anterior chest. In the ER he was afebrile with pulse rate 108, respiratory rate 17�22, BP was low at 90/65 and
he was saturating 100% on room air. Labs showed normal WBC at 5.9, Hb 9.1, serum sodium 129, potassium 5.4, creatinine 13.7, serum bicarbonate level 29, troponin 0.104, proBNP >27,000, and CTA chest showed a somewhat linear partial filling defect
in the left lower lobe with concern for subsegmental PE. He was given Ativan in the ER + fentanyl and started on heparin drip and then admitted to the IMU. Given this concern for a chronic/remote PE, pulmonary service now consulted for additional
management/recommendations.
When I saw the patient, he was resting in bed in no acute distress. He does not know which part of the lung had the pulmonary embolism. He says that he has continued pain on the left side of his lower chest which is severe. He is currently on a
heparin drip. He says that when he takes in a deep breath that he coughs and that makes the pain in his chest much worse. He currently denies JONES, abdominal pain, nausea, fevers or chills.
PMHx: ESRD on PD, chronic HFrEF, anxiety/depression, history of PE s/p 6 months of Eliquis
PSHx: Renal biopsy x 3, renal transplant (from father), multiple tunneled HD catheter, LUE AVF, ligation of AVF, sinus surgery
Past Medical History
Past Medical History: Other (Above as per HPI)
Past Surgical History: Other (Above as per HPI)
Social History
Tobacco: Vaping (Daily vape use)
Alcohol: None
Drug: Marijuana
Family History
Family History: Reviewed & Not Pertinent
Allergies / Home Medications
Allergies
Allergy/AdvReac Type Severity Reaction Status Date / Time
metoclopramide (From Reglan) Allergy Unknown Verified 01/20/25 21:50
prochlorperazine (From Allergy Unknown Verified 01/20/25 21:50
Compazine)
diphenhydramine (From AdvReac Unknown Verified 01/20/25 21:50
Benadryl)
Home Medications
�Medication �Instructions �Recorded �Confirmed �Last Taken �Type
Unobtainable 01/21/25 01/21/25 Unknown History
Review of Systems
-
History Source: Patient
All other systems: Negative unless noted (12 point ROS performed and is negative unless mentioned above.)
Vitals / Labs / Diagnostic Testing
Vital Signs
Temp Pulse Resp BP Pulse Ox
97.7 F 108 29 89/58 98
01/21/25 06:20 01/21/25 11:00 01/21/25 11:00 01/21/25 10:19 01/21/25 11:00
Lab Data
01/20/25 22:17
01/20/25 22:17
Laboratory Results
01/20/25 01/21/25 01/21/25
22:17 01:43 03:22
PT 14.4
INR 1.09
APTT Cancelled Cancelled
01/21/25
07:27
PT
INR
APTT 95.5 H
Diagnostic Testing:
Physical Exam
-
HEENT: Normocephalic and Anicteric
Cardiovascular: S1/S2 and Peripheral Edema (negative)
Respiratory: Wheeze (negative), Rales (Bibasilar (R>L)), Rhonchi (negative), Non-Labored Respirations and Other (Reproducible pain with palpation at the left lower rib/anterior chest)
GI: Soft, Non Distended, Non Tender and Normal Bowel Sounds
Neurology: AO x 3 and Tremors (negative)
Skin: Warm and Dry
General: Respiratory Distress (negative), Pain (Left lower anterior chest), Chills (negative) and Sweats (negative)
Assessment
-
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
history of PE s/p AC with Eliquis for 6 months, chronic HFrEF, anxiety/depression who presents with worsening cough and left lower anterior chest pain for 2 weeks. He thinks that he may be dealing with a cold. He usually gets his care done at
[facility] but did not want to go there. He felt that he was having another PE as he was experiencing focal pain that was severe on his left lower anterior chest. In the ER he was afebrile with pulse rate 108, respiratory rate 17�22, BP was low
at 90/65 and he was saturating 100% on room air. Labs showed normal WBC at 5.9, Hb 9.1, serum sodium 129, potassium 5.4, creatinine 13.7, serum bicarbonate level 29, troponin 0.104, proBNP >27,000, and CTA chest showed a somewhat linear partial
filling defect in the left lower lobe with concern for subsegmental PE. He was given Ativan in the ER + fentanyl and started on heparin drip and then admitted to the IMU. Given this concern for a chronic/remote PE, pulmonary service now consulted
for additional management/recommendations.
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
Impression:
#SOB with left lower anterior focal chest pain
#Elevated troponin likely due to demand ischemia
#Linear partial filling defect in subsegmental left lower lobe pulmonary artery with concern for remote/chronic PE
#Mosaic attenuation seen on CT chest from 01/21/2025 -differential includes interstitial edema vs obstructive airway disease vs interstitial pneumonia/pneumonitis vs infection (doubtful)
#Cardiomegaly with LV dilatation and without RV enlargement
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
#History of chronic HFrEF
#History of PE s/p anticoagulation with Eliquis x 6 months
#Anemia
#Hypochloremic, hyponatremia
Plan:
- Given concern for chronic left lower lobe subsegmental PE, need to rule out CTEPH, although suspicion is low for this given how the RV looks on CTA chest (RV diameter < LV diameter)
- I will check a transthoracic echo to assess right-sided pressures + RV size/function (echo pending for 01/23/2025)
- Pt is already on IV heparin started on admission - -> can empirically continue this for now and see if his CALDWELL improves
- If echo shows signs of PH, then next step would be a RHC vs referral to a CTEPH center
- I will need to obtain records of where his prior PE was located, as this LLL filling defect seen on CTA chest may be a persistent thrombi without any change from prior, in which case the decision to continue AC will depend on his thrombogenic
risk in conjunction with his echo findings
- I will check LE duplex for now to assess for presence of DVT
- Given the size and location of this suspected LLL PE, I do not feel that this is what is causing his SOB. Hence if thrombogenic risk is low and echo does not show signs of PH or RV dysfunction, then would stop anticoagulation given its low
benefit in that scenario
- Would also consider hematology consult at some point (outpatient is reasonable), to consider hypercoagulable testing (unless he has already had this at prior hospital at [facility])
- Given that he has mosaic attenuation with bronchial wall thickening seen on CTA chest from 01/21/2025, would check spirometry once he can take in a deep breath without coughing (as he gets severe left sided rib pain when he coughs)
- DDx for mosaic attenuation is as above
- Will start scheduled DuoNebs for now with prn DuoNebs (not currently bronchospastic)
- Maintain SpO2 >90-94% with supplemental O2 as needed
- Given his history of cardiomyopathy, cardiology is consulted and recommendations appreciated
- Chest pain management per cardiology; appears to be atypical
- Troponin has already peaked; no need to continue trending at this time
- Continue with PD for now as regularly scheduled
- His proBNP is >27,000 - -> may need to increase amount of fluid removed during PD to see if this helps his SOB
- Nephrology consulted - recs appreciated
- Incentive spirometer encouraged q1hr while awake
- Replete electrolytes with K>4, Mg>2
- Trend H/H and transfuse if needed to keep Hb>7g/dL; keep plt>20k, unless there is concern for bleeding then keep plt>50k
- Maintain euglycemia with goal BG >100 and <180
- DVT ppx - heparin gtt
Pulmonary service will continue to follow along.
Data:
CTA chest 01/21/2025:
No evidence of acute pulmonary embolism. Probable sequela of remote/chronic pulmonary embolism in the medial left lung base subsegmental pulmonary artery.
Cardiomegaly with left ventricular dilatation and slightly prominent left atrium.
No evidence of pneumonia. Mild air trapping at the lung bases.
Mild upper abdominal ascites.
Incidental rugger jersey spine, which is associated with secondary hyperparathyroidism as a result of underlying chronic kidney disease.
Total time spent today was 62 minutes for this encounter. Time includes reviewing laboratory test/imaging results, reviewing pertinent medical records, obtaining and reviewing medical history, performing an appropriate exam, ordering medications,
tests and procedures. Time also includes documentation of this encounter, coordinating patient care and communicating with other healthcare professionals. Total time does not include separately billed tests performed on this date of service.
[2025-01-21 15:26] LABS: APTT 77.6 Sec (23.4-35.0)
[2025-01-21] MEDS: DILAUDID 0.5 MG IV ×2 (16:47→20:48)
--- NOTE | 2025-01-21 18:00 | PTCARENOTE ---
PD exchanges ordered by nephrology. Patient has received one exchange next one at 8PM. Medicating pt with pain meds as ordered for left side chest pain. Intermittent nausea without vomiting. Zofran ordered. Patient with poor appetite. He does
not like our food. 1200 FR added to diet. IV heparin drip infusing at 1100units. Next PTT in AM. BP's soft, midodrine given as ordered. Patient states that his BP's are always low. Denies feeling dizzy or lightheaded. Pulse ox 99-100%, pt
tachypneic at times using 2l o2 intermittently for comfort. Patient very week. Assist x1 to stand and get on stretcher. Using call ortega appropriately.
[2025-01-21] MEDS: DUONEB 3 ML INH (19:19)
[2025-01-21 19:37] LABS: Body Fluid Second Tech BGK
[2025-01-21] MEDS: ATIVAN 0.5 MG PO (20:09)
--- NOTE | 2025-01-21 23:40 | PTCARENOTE ---
Pt SBP in the 80s. Administered PRN Midodrine per order. BP still remains low with SBP in the 70s. Pt is asymptomatic and states this is normal for him. Notified CARRIER BLOWER.
[2025-01-22] VITALS (18 sets, daily range): BP systolic 58–162; BP diastolic 41–132; BMI 19.2
[2025-01-22] MEDS: HEPARIN 25000 UNITS/250 ML IV (01:51)
[2025-01-22] MEDS: DILAUDID 0.5 MG IV ×4 (03:39→21:05)
[2025-01-22] MEDS: FLUSH (NSS) 2 FLUSH IV (03:41)
[2025-01-22 05:48] LABS: Hematocrit 25.8 % (39.0-52.0); Hemoglobin 8.1 g/dL (13.0-18.0); Mean Corp Hgb Conc. 31.4 g/dL (33.0-37.0); Mean Corpuscular Volume 103.2 fL (80.0-94.0); Platelet Count 170 10^3/uL (130-400); Red Cell Dist. Width 13.8 % (11.5-14.5)
[2025-01-22 06:04] LABS: Blood Urea Nitrogen 73 mg/dl (9-20); Calcium 8.8 mg/dl (8.4-10.2); Carbon Dioxide 24 mmol/L (22-30); Chloride 92 mmol/L (98-107); Glucose 92 mg/dl (70-99); Magnesium 2.4 mg/dl (1.6-2.3); Potassium 5.6 mmol/L (3.5-5.1); Sodium 128 mmol/L (135-145)
[2025-01-22 06:41] LABS: Estimated Creatinine Clearance 7 ml/min; eGFR 4.57
[2025-01-22 06:53] LABS: APTT 79.9 Sec (23.4-35.0)
[2025-01-22] MEDS: DUONEB 3 ML INH ×2 (07:05→17:49)
--- NOTE | 2025-01-22 07:50 | PTCARENOTE ---
Assumed care of patient at beginning of this shift from previous RN; cannot verify accuracy of vital signs prior to 0700.
--- NOTE | 2025-01-22 08:49 | W.PN.HOSP.TC ---
Today's Communication/Plan
-
Continue with IV heparin for now
Echocardiogram in AM.
Continue with PD.
Assessment / Plan
Assessment / Plan
A/P: Patient is a 24y M with PMH significant for ESRD on PD, HFrEF and anxiety / depression who presents to ED complaining of CALDWELL and fatigue.
LLL Pulmonary Embolism
- suspect that this represents residual / chronic thrombosis.
- Patient reports prior PE treated with 6 months of Eliquis.
-Ultrasound of the legs negative for DVT. Appreciate pulmonary input.
- Continue IV heparin for now.
- Check Echo.
- Further recommendations for chronic anticoagulation therapy after echo..
- Suspect there are other etiologies for his presenting complaints of CALDWELL and fatigue.
ESRD
- Long-standing ESRD on HD and changed to PD about 2 1/2 months ago.
- Ascites seen on CT scan c/w PD therapy.
- Labs noted with multiple electrolyte derangements.
- Prior h/o renal transplant which lasted about 4 years and failed due to non-compliance with antirejection med regimen.
- Nephrology following
- Follow I/Os, daily weights, etc.
Chronic HFrEF
- Clinically seems to be compensated
- Patient reports EF of 20%. Update Echo. Send to [facility] for records for review.
- Seems likely that recent increase in symptoms correlates with change to PD and ? less efficient dialysis.
- Cardiology following.
Abnormal Troponin
- Unknown type. Unknown baseline in this patient with ESRD.
- EKG with T wave inversions / NSST-T changes in lateral leads. No prior tracings here for comparison.
Anemia
- Suspect anemia of chronic disease / CKD - but no prior values for comparison.
- Follow H&H for any changes.
Generalized Anxiety / Depression
- Significant component of anxiety. Ativan PRN for now.
- Review medications in AM when able and resume any psychotropic medications.
- Consider formal Psych evaluation.
DVT Prophylaxis: On therapeutic heparin at present.
Code Status: Full
Anticipated Discharge: > 48 hours
Subjective/Interval History
-
Date of Service: January 22, 2025
Slept okay. Was troubled with intermittent cough which was giving him chest pain and abdominal pain. Denies shortness of breath at rest.
No nausea vomiting.
No fever or chills.
Not much appetite yet.
Objective Data
-
Labs:
Laboratory Results
01/22/25 01/22/25
05:26 06:30
WBC 4.4 L
Hgb 8.1 L
Hct 25.8 L
Plt Count 170
APTT 79.9 H
Sodium 128 L
Potassium 5.6 H
Chloride 92 L
Carbon Dioxide 24
BUN 73 H
Creatinine 14.0 H*
Glucose 92
Calcium 8.8
Vital Signs:
Vital Signs
Temp Pulse Resp BP Pulse Ox
98.2 F 96 27 81/54 94
01/22/25 07:43 01/22/25 07:45 01/22/25 07:45 01/22/25 07:16 01/22/25 07:45
I&O
01/21/25 01/22/25 01/23/25
06:59 06:59 06:59
Intake Total 1260 / 1260
Output Total 500 / 500
Balance 760 / 760
Physical Exam
-
General: Comfortable
Respiratory: Clear to Auscultation and Non Labored Respirations; Negative Accessory Resp Muscle Use
Cardiac: Regular Rhythm and S1/S2
GI: Soft, Nondistended, Normal Bowel Sounds, Tender (Some discomfort in the left side of the abdomen but no rebound guarding rigidity) and Other (PD catheter in place)
Neuro: AO x 3
Psych: Calm
Data Reviewed
-
Labs: Labs Reviewed by me
[2025-01-22] MEDS: LOKELMA 10 GRAM PO (10:28)
--- NOTE | 2025-01-22 11:00 | W.PN.CD ---
Today's Communication / Plan
-
Echo tomorrow
Records requested from [facility]
Impression / Plan
-
24-year-old man with ESRD status post failed renal transplant, resumed on dialysis (initially hemodialysis but switched to peritoneal 2 months ago for worsening cardiomyopathy), HFrEF (reported EF 20%), prior PE who presents with dyspnea on exertion
and fatigue.
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 Jc at [facility]
Chest pain
- Unclear etiology at this time. Atypical in nature. ECG with ST depressions and T wave inversions but unclear chronicity. Troponin is likely within normal limits given ESRD. Could be uremic pericarditis. CT negative for acute PE.
- Follow-up echocardiogram tomorrow
- Continue pain control per primary team
- Old ECG requested from [facility]
Shortness of breath
- Does not appear to be significantly volume overloaded. Possible CTEPH given history of PE. Angina lower on the differential but need to obtain prior ECGs
- Echo tomorrow. Possible VQ scan per pulmonary.
Cardiomyopathy/HFrEF - EF 20% by patient report.
- appears euvolemic, volume managed by PD.
- request records from [facility].
- Likely not on GDMT due to baseline hypotension and ESRD
- Follow-up echo
H/o pulmonary embolism - unsure of timing and was taking Eliquis.
- Admission CT negative for acute PE.
- currently on IV heparin which pulmonary is planning to continue until echo tomorrow
- May need VQ scan
ESRD - PD dependent currently
- Status post renal transplant 4 years ago, failed. He was on HD which was switched to PD a few months ago for worsening cardiomyopathy.
- Followed by nephrology at [facility].
- Nephrology consulted here.
Abnormal troponin - initial troponin 0.104, then 0.095.
- Suspect that this is a normal troponin given his level of ESRD
- Chest pain management as above
Anemia - acute on chronic.
- follow.
Anxiety/depression - chronic, unsure if taking meds as an outpatient.
Subjective: He still has chest pain and shortness of breath even with walking to the bathroom. Symptoms have not improved at all.
Physical Exam
Vital Signs/Labs
Vital Signs
Temp Pulse Resp BP Pulse Ox
98.2 F 96 27 81/54 94
01/22/25 07:43 01/22/25 07:45 01/22/25 07:45 01/22/25 07:16 01/22/25 07:45
01/21/25 01/22/25 01/23/25
06:59 06:59 06:59
Actual Weight 130 lb 1.164 oz 130 lb
01/22/25 05:26
01/22/25 05:26
PT 14.4 Sec (11.4-14.6) 01/20/25 22:17
INR 1.09 01/20/25 22:17
APTT 79.9 Sec (23.4-35.0) H 01/22/25 06:30
Magnesium 2.4 mg/dl (1.6-2.3) H 01/22/25 05:26
01/20/25
22:17
Bgy-K-Qjntklgkhlp Pept > 52080
LAB Results
01/20/25 01/21/25 01/21/25
22:17 07:27 12:08
Troponin I 0.104 H* 0.095 H* Cancelled
01/21/25
18:08
Troponin I Cancelled
Physical Exam
Constitutional: Other (Uncomfortable appearing)
Cardiovascular: Rhythm & rate is regular, Pedal edema is absent, S1S2 is normal and Murmur/rub/gallop absent
Respiratory: Respiratory effort normal and Lungs clear to auscul.
Neuro/Psych: AO x 3
Data Reviewed
-
Date of Service: January 22, 2025
Medical Decision Making: Reviewed Test Results, Test Interpretation and Review of Case with other Provider
EKG: Tracing Personally Visualized and interpreted
X-Ray/CT/US/MRI/NUC/PET: Image Personally Visualized and interpreted
Labs: Labs Reviewed by me
[2025-01-22] MEDS: DUONEB INH (11:12)
[2025-01-22] MEDS: PHENERGAN WITH CODEINE SYRUP 5 ML PO (13:29)
--- NOTE | 2025-01-22 13:33 | W.PN.NEPH.PH ---
Today's Communication / Plan
-
cont PD
Assessment/Plan
-
IMP:
LLL Pulmonary Embolism-chr
ESRD on PD-[place]
HYponatremia
Hyperkalemia
Hypotension
Prior h/o renal transplant which lasted about 4 years and failed due to non-compliance
Chronic HFrEF EF 20%
Abnormal Troponin
Anemia
Generalized Anxiety / Depression
Plan:
A/w sob CT noted chr PE, switch to PD over 1yr ago due to suspected worsening CHF and AVF ligated
no sig hypervolemia on exam other than CALDWELL
cont PD all 2.5, Q4h exchange and FV 2lit , UF 900cc so far but net +ve balance, reviewed flow sheets
strict renal diet and FR for electrolyte issues-expect to see some improvement
Bp are very soft with known Reduced EF ,cont midodrine and await records from [place], check cortisol, bld cx neg
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
hyperkalemia-will give Lokelma
hyponatremia-dilutional , stay with FR
Hyperphosphatemia-add renvela
PD fluid with out infection
obtain home med list
poor care home prognosis
d/w primary, pt and nursing in detail
-
-
Date of Service: January 22, 2025
CC / HPI / ROS
-
Chief Complaint:
ESRD
History of Present Illness:
k up at 5.6, sodium low 128
hb down to 8.1
phos 8.7
Review of Systems:
still CALDWELL
no n/v
no abd pain
Labs
-
Labs:
WBC 4.4 10^3/uL (4.8-10.8) L 01/22/25 05:26
RBC 2.50 10^6/uL (4.70-6.10) L 01/22/25 05:26
Hgb 8.1 g/dL (13.0-18.0) L 01/22/25 05:26
Hct 25.8 % (39.0-52.0) L 01/22/25 05:26
Plt Count 170 10^3/uL (130-400) 01/22/25 05:26
Sodium 128 mmol/L (135-145) L 01/22/25 05:26
Potassium 5.6 mmol/L (3.5-5.1) H 01/22/25 05:26
Chloride 92 mmol/L (98-107) L 01/22/25 05:26
Carbon Dioxide 24 mmol/L (22-30) 01/22/25 05:26
BUN 73 mg/dl (9-20) H 01/22/25 05:26
Creatinine 14.0 mg/dL (0.7-1.3) H* 01/22/25 05:26
eGFR 4.57 01/22/25 05:26
Glucose 92 mg/dl (70-99) 01/22/25 05:26
Calcium 8.8 mg/dl (8.4-10.2) 01/22/25 05:26
Phosphorus 8.7 mg/dl (2.5-4.5) H 01/22/25 05:26
Cdh-X-Piofstsxbhe Pept > 57237 pg/ml 01/20/25 22:17
Albumin 4.2 g/dl (3.5-5.0) 01/20/25 22:17
Physical Exam
-
Vital Signs:
Vital Signs
Temp Pulse Resp BP Pulse Ox
97.7 F 96 27 81/54 94
01/22/25 11:51 01/22/25 07:45 01/22/25 07:45 01/22/25 07:16 01/22/25 07:45
Cardiovascular:: Regular rate and rhythm
Respiratory:: Bilateral: CTA
Lung Excursion:: Normal
Abdomen:: Nontender and Soft
Extremity Edema:: None: Bilateral:
Hector Catheter: No
--- NOTE | 2025-01-22 14:22 | PTCARENOTE ---
Patient was due for PD at 10:09; however it was started late as he was in the bathroom. See worklist for intervention times. Dr Li made aware drain was 2400ml; reviewed previous PD amounts with her when on unit to see patient.
[2025-01-22] MEDS: TESSALON PERLES 200 MG PO ×2 (15:23→21:05)
--- NOTE | 2025-01-22 15:32 | W.PN.PUL3 ---
Today's Communication / Plan
-
Continue heparin drip empirically
DuoNebs
Echo tomorrow to assess for PH + RV function
Check VQ scan
Pain control
Medical records pending from [facility]
Eventual spirometry given bronchial thickening seen on CT chest - outpatient follow-up will be arranged
Pulmonary service will continue to follow along
Assessment
-
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
history of PE s/p AC with Eliquis for 6 months, chronic HFrEF, anxiety/depression who presents with worsening cough and left lower anterior chest pain for 2 weeks. He thinks that he may be dealing with a cold. He usually gets his care done at
[facility] but did not want to go there. He felt that he was having another PE as he was experiencing focal pain that was severe on his left lower anterior chest. In the ER he was afebrile with pulse rate 108, respiratory rate 17�22, BP was low
at 90/65 and he was saturating 100% on room air. Labs showed normal WBC at 5.9, Hb 9.1, serum sodium 129, potassium 5.4, creatinine 13.7, serum bicarbonate level 29, troponin 0.104, proBNP >27,000, and CTA chest showed a somewhat linear partial
filling defect in the left lower lobe with concern for subsegmental PE. He was given Ativan in the ER + fentanyl and started on heparin drip and then admitted to the IMU. Given this concern for a chronic/remote PE, pulmonary service now consulted
for additional management/recommendations.
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
Impression:
#SOB with left lower anterior focal chest pain
#Elevated troponin likely due to demand ischemia
#Linear partial filling defect in subsegmental left lower lobe pulmonary artery with concern for remote/chronic PE
#Mosaic attenuation seen on CT chest from 01/21/2025 -differential includes interstitial edema vs obstructive airway disease vs interstitial pneumonia/pneumonitis vs infection (doubtful)
#Cardiomegaly with LV dilatation and without RV enlargement
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
#History of chronic HFrEF
#History of PE s/p anticoagulation with Eliquis x 6 months
#Anemia
#Hypochloremic, hyponatremia
Plan:
- Given concern for chronic left lower lobe subsegmental PE, need to rule out CTEPH, although suspicion is low for this given how the RV looks on CTA chest (RV diameter < LV diameter)
- I will check a transthoracic echo to assess right-sided pressures + RV size/function (echo pending for tomorrow, 01/23/2025)
- Continue IV heparin empirically (started on admission) - -> monitor to see if his CALDWELL/chest pain improves
- If echo shows signs of PH, then next step would be a RHC vs referral to a CTEPH center
- Obtain records of where his prior PE was located, as this LLL filling defect seen on CTA chest may be a persistent thrombi without any change from prior, in which case the decision to continue AC will depend on his thrombogenic risk in conjunction
with his echo findings
- LE duplex negative for DVT
- Check V/Q scan
- Given the size and location of this suspected LLL PE, I do not feel that this is what is causing his SOB. Hence if thrombogenic risk is low and echo does not show signs of PH or RV dysfunction, and V/Q scan shows low probability of a PE, then
would stop anticoagulation given its low benefit in that scenario
- Consider hematology consult at some point (outpatient is reasonable), to consider hypercoagulable testing (unless he has already had this at prior hospital at [facility])
- Given that he has mosaic attenuation with bronchial wall thickening seen on CTA chest from 01/21/2025, would check spirometry once he can take in a deep breath without coughing (as he gets severe left sided rib pain when he coughs)
- DDx for mosaic attenuation is as above
- Started scheduled DuoNebs on 01/21 with prn DuoNebs (not currently bronchospastic) - -> he does not notice a big difference with the nebs
- Maintain SpO2 >90-94% with supplemental O2 as needed
- Given his history of cardiomyopathy, cardiology is consulted and recommendations appreciated
- Chest pain management per PCP and cardiology; appears to be atypical
- Troponin has already peaked; no need to continue trending at this time
- Continue with PD for now as regularly scheduled
- His proBNP is >27,000 - -> may need to increase amount of fluid removed during PD to see if this helps his SOB
- Nephrology consulted - recs appreciated
- Incentive spirometer encouraged q1hr while awake
- Replete electrolytes with K>4, Mg>2
- Trend H/H and transfuse if needed to keep Hb>7g/dL; keep plt>20k, unless there is concern for bleeding then keep plt>50k
- Maintain euglycemia with goal BG >100 and <180
- DVT ppx - heparin gtt
Pulmonary service will continue to follow along.
Data:
CTA chest 01/21/2025:
No evidence of acute pulmonary embolism. Probable sequela of remote/chronic pulmonary embolism in the medial left lung base subsegmental pulmonary artery.
Cardiomegaly with left ventricular dilatation and slightly prominent left atrium.
No evidence of pneumonia. Mild air trapping at the lung bases.
Mild upper abdominal ascites.
Incidental rugger jersey spine, which is associated with secondary hyperparathyroidism as a result of underlying chronic kidney disease.
Total time spent today was 38 minutes for this encounter. Time includes reviewing laboratory test/imaging results, reviewing pertinent medical records, obtaining and reviewing medical history, performing an appropriate exam, ordering medications,
tests and procedures. Time also includes documentation of this encounter, coordinating patient care and communicating with other healthcare professionals. Total time does not include separately billed tests performed on this date of service.
Subjective Data
-
Date of Service:
Date of Service: January 22, 2025
Chief Complaint: Pulmonary Follow Up
Subjective:
Patient seen and evaluated this morning (late note entry). Continues to have pain in his left side of ribs. Afebrile overnight. Heart rate currently 97, BP 94/66 and he is breathing comfortably on room air.
Review of Systems
General: Other (Negative unless mentioned above)
Objective Data
Data Reviewed
Vital Signs / I&O / Oxygen:
Vital Signs
Temp Pulse Resp BP Pulse Ox
98.2 F 96 27 81/54 94
01/22/25 07:43 01/22/25 07:45 01/22/25 07:45 01/22/25 07:16 01/22/25 07:45
Intake and Output
01/21/25 01/22/25 01/23/25
06:59 06:59 06:59
Intake Total 1260 / 1260
Output Total 500 / 500
Balance 760 / 760
SaO2 94
Physical Exam
General: Respiratory Distress (negative), Comfortable, Chills (negative) and Sweats (negative)
HEENT: Normocephalic and Anicteric
Cardiovascular: S1-S2 and Peripheral Edema (negative)
Respiratory: Wheeze (negative), Crackles (negative), Rhonchi (negative), Non-Labored Respirations and Other (No tenderness to palpation of anterior chest/ribs)
GI: Soft, Non Distended, Non Tender and Normal Bowel Sounds
Neurology: Awake, Alert, Oriented and Tremors (negative)
Skin: Warm, Dry, Cyanosis (negative) and Jaundice (negative)
Labs/Micro/Reports
Lab Data
01/22/25 05:26
01/22/25 05:26
Laboratory Results
01/21/25 01/22/25
15:04 06:30
APTT 77.6 H 79.9 H
Microbiology
01/20/25 22:17 Blood/Venous Blood Culture - Preliminary
No Growth in 24 hours- Final report to follow
--- NOTE | 2025-01-22 17:04 | CM ---
CM attempted to complete IA, however pt would not participate, stating 'too many people ask the same things. don't waste my time.'
CM was able to determine that patient lives with his father, is new to and had previously received his care in [facility].
Pt is on peritoneal dialysis, had a kidney transplant in the past, however this failed due to pt's non-compliance.
CM will follow up to obtain additional information.
[2025-01-22] MEDS: RENVELA PO (17:52)
--- NOTE | 2025-01-22 18:02 | PTCARENOTE ---
Patient unsure if he will eat dinner; beni held at this time. Will report off to animal cruelty investigator to give if patient orders dinner.
[2025-01-22] MEDS: RENVELA 800 MG PO (18:47)
[2025-01-23] VITALS (13 sets, daily range): BP systolic 82–101; BP diastolic 49–75; BMI 18.0
[2025-01-23] MEDS: HEPARIN 25000 UNITS/250 ML IV (01:27)
[2025-01-23] MEDS: DILAUDID 0.5 MG IV ×5 (01:28→21:42)
--- NOTE | 2025-01-23 02:21 | PTCARENOTE ---
Received pt at change of shift. PD completed with no issues or concerns; see documentation. BPs remain soft despite administered PRN doses of midodrine. Pts pain in left chest uncontrolled with pain medication. Lungs are CTA on RA. Discussed
with pt how he feels regarding his health status and encouraged pt to seek professional emotional support. He states he agrees but has had difficulty finding someone he trusts and can feel comfortable with. Resting in bed with call ortega in reach.
[2025-01-23 06:44] LABS: Hematocrit 24.3 % (39.0-52.0); Hemoglobin 8.0 g/dL (13.0-18.0); Mean Corp Hgb Conc. 32.9 g/dL (33.0-37.0); Mean Corpuscular Volume 98.4 fL (80.0-94.0); Platelet Count 171 10^3/uL (130-400); Red Cell Dist. Width 13.9 % (11.5-14.5)
[2025-01-23 06:52] LABS: APTT 50.2 Sec (23.4-35.0)
[2025-01-23 07:14] LABS: Blood Urea Nitrogen 68 mg/dl (9-20); Calcium 8.8 mg/dl (8.4-10.2); Carbon Dioxide 26 mmol/L (22-30); Chloride 93 mmol/L (98-107); Glucose 88 mg/dl (70-99); Potassium 5.0 mmol/L (3.5-5.1); Sodium 132 mmol/L (135-145)
[2025-01-23 07:25] LABS: Estimated Creatinine Clearance 7 ml/min; eGFR 4.49
[2025-01-23 07:46] LABS: Cortisol, Random 6.4 ug/dl
[2025-01-23] MEDS: DUONEB 3 ML INH (08:13)
[2025-01-23] MEDS: HEPARIN 4800 UNITS IV ×2 (08:19→22:14)
[2025-01-23] MEDS: TESSALON PERLES 200 MG PO ×3 (08:20→21:04)
[2025-01-23] MEDS: RENVELA 800 MG PO ×2 (08:20→16:37)
[2025-01-23] MEDS: ATIVAN 0.5 MG PO ×2 (08:49→22:14)
--- NOTE | 2025-01-23 09:34 | W.PN.PUL.V3 ---
Today's Communication / Plan
-
Continue anticoagulation
VQ scan pending
Analgesia per primary service
Assessment
-
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
history of PE s/p AC with Eliquis for 6 months, chronic HFrEF, anxiety/depression who presents with worsening cough and left lower anterior chest pain for 2 weeks. He thinks that he may be dealing with a cold. He usually gets his care done at
[facility] but did not want to go there. He felt that he was having another PE as he was experiencing focal pain that was severe on his left lower anterior chest. In the ER he was afebrile with pulse rate 108, respiratory rate 17�22, BP was low
at 90/65 and he was saturating 100% on room air. Labs showed normal WBC at 5.9, Hb 9.1, serum sodium 129, potassium 5.4, creatinine 13.7, serum bicarbonate level 29, troponin 0.104, proBNP >27,000, and CTA chest showed a somewhat linear partial
filling defect in the left lower lobe with concern for subsegmental PE. He was given Ativan in the ER + fentanyl and started on heparin drip and then admitted to the IMU. Given this concern for a chronic/remote PE, pulmonary service now consulted
for additional management/recommendations.
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
Impression:
#SOB with left lower anterior focal chest pain
#Elevated troponin likely due to demand ischemia
#Linear partial filling defect in subsegmental left lower lobe pulmonary artery with concern for remote/chronic PE
#Mosaic attenuation seen on CT chest from 01/21/2025 -differential includes interstitial edema vs obstructive airway disease vs interstitial pneumonia/pneumonitis vs infection (doubtful)
#Cardiomegaly with LV dilatation and without RV enlargement
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
#History of chronic HFrEF
#History of PE s/p anticoagulation with Eliquis x 6 months
#Anemia
#Hypochloremic, hyponatremia
Plan:
Respiratory status is about the same-continues to complain of pleuritic left anterior chest pain
Supplemental oxygen as needed
Nebulizers if needed-currently not bronchospastic
Tessalon Perles
CT chest 01/21/2025-no evidence for pulmonary embolism, probable sequelae of remote/chronic pulmonary embolism medial left lung base
Lower extremity ultrasound 01/21/2025-negative for DVT
VQ scan 01/23/2025-pending
Echocardiogram 01/23/[id number] DuoNebs
Eventual spirometry
History of cardiomyopathy
Follow atypical chest pain
Troponin trended
Cardiology evaluation ongoing-correspondence reviewed
Nephrology following-correspondence reviewed
Continues on peritoneal dialysis
Monitor hemoglobin
Transfuse if needed
Monitor blood sugar
Insulin supplementation as needed
DVT prophylaxis-on heparin drip
Nutrition
Early mobilization
Outpatient pulmonary follow-up
Reviewed with nursing
Data:
CTA chest 01/21/2025:
No evidence of acute pulmonary embolism. Probable sequela of remote/chronic pulmonary embolism in the medial left lung base subsegmental pulmonary artery.
Cardiomegaly with left ventricular dilatation and slightly prominent left atrium.
No evidence of pneumonia. Mild air trapping at the lung bases.
Mild upper abdominal ascites.
Incidental rugger jersey spine, which is associated with secondary hyperparathyroidism as a result of underlying chronic kidney disease.
Subjective Data
-
Date of Service:
Date of Service: January 23, 2025
Chief Complaint: Pulmonary Follow Up and Dyspnea Follow Up
Subjective:
Feels about the same, has left-sided pleuritic pain anteriorly in the chest area, some mild shortness of breath, nonproductive cough, no abdominal pain
Review of Systems
General: Other (Per HPI)
Objective Data
Data Reviewed
Vital Signs / I&O:
Vital Signs
Temp Pulse Resp BP Pulse Ox
98 F 99 16 82/58 100
01/23/25 08:13 01/23/25 08:17 01/23/25 08:17 01/23/25 06:13 01/23/25 08:17
Intake and Output
01/22/25 01/23/25 01/24/25
06:59 06:59 06:59
Intake Total 1260 / 1260
Output Total 500 / 500 1500 / 1500
Balance 760 / 760 -1500 / -1500
SaO2: 100
Physical Exam
General: Respiratory Distress (negative), Comfortable, Chills (negative) and Sweats (negative)
HEENT: Normocephalic and Anicteric
Cardiovascular: Regular Rhythm and Peripheral Edema (negative)
Respiratory: Wheeze (negative), Crackles (negative), Rhonchi (negative), Non-Labored Respirations and Other (No tenderness to palpation of anterior chest/ribs)
GI: Soft, Non Distended, Non Tender and Normal Bowel Sounds
Neurology: Awake, Alert, Oriented and No Motor Deficits
Skin: Warm, Dry, Cyanosis (negative), Jaundice (negative) and Rash (n)
Labs/Micro/Reports
Lab Data
01/23/25 06:30
01/23/25 06:30
Laboratory Results
01/23/25
06:30
APTT 50.2 H
Microbiology
01/21/25 17:41 Peritoneal Fluid Body Fluid Culture - Preliminary
No Growth After 18-24 Hours
01/21/25 17:41 Peritoneal Fluid Gram Stain - Preliminary
01/20/25 22:17 Blood/Venous Blood Culture - Preliminary
No Growth in 48 hours- Final report to follow
--- NOTE | 2025-01-23 09:38 | W.PN.NEPH.PH ---
Today's Communication / Plan
-
PD orders provided
Follow daily labs
For echocardiogram today
Assessment/Plan
-
IMP:
LLL Pulmonary Embolism-chr
ESRD on PD-[place]
HYponatremia
Hyperkalemia
Hypotension
Prior h/o renal transplant which lasted about 4 years and failed due to non-compliance
Chronic HFrEF EF 20%
Abnormal Troponin
Anemia
Generalized Anxiety / Depression
Secondary hyperparathyroidism
Plan:
Remains on heparin drip for suspected left lower lung pulmonary embolus
A/w sob CT noted chr PE, switch to PD over 1yr ago due to suspected worsening CHF and AVF ligated
no sig hypervolemia on exam other than CALDWELL
cont PD all 2.5, Q4h exchange and FV 2lit , reviewed PD flowsheet, UF 200 to 400 cc negative H psych
strict renal diet and FR for electrolyte issues-expect to see some improvement
Bp are very soft with known Reduced EF ,cont midodrine and await records from [place], checked cortisol, bld cx neg
anemia -adequate fe stores, had FABRICIO 3day CHIEF OF PRODUCTION
hyperkalemia-s/p Lokelma, currently stable at 5
hyponatremia-dilutional , stay with FR
Hyperphosphatemia-added renvela
PD fluid with out infection
obtain home med list
poor alf prognosis
Patient grossly hemodynamically unstable for echocardiogram today
Unfortunately we have no more new recommendations
d/w primary, pt and nursing in detail
-
-
Date of Service: January 23, 2025
CC / HPI / ROS
-
Chief Complaint:
ESRD
History of Present Illness:
k at 5., sodium up to 132
hb down to 8
Hemodynamically unstable with systolic blood pressure at 82
Remains on heparin drip
Review of Systems:
still CALDWELL
no n/v
no abd pain
Labs
-
Labs:
WBC 4.2 10^3/uL (4.8-10.8) L 01/23/25 06:30
RBC 2.47 10^6/uL (4.70-6.10) L 01/23/25 06:30
Hgb 8.0 g/dL (13.0-18.0) L 01/23/25 06:30
Hct 24.3 % (39.0-52.0) L 01/23/25 06:30
Plt Count 171 10^3/uL (130-400) 01/23/25 06:30
Sodium 132 mmol/L (135-145) L 01/23/25 06:30
Potassium 5.0 mmol/L (3.5-5.1) 01/23/25 06:30
Chloride 93 mmol/L (98-107) L 01/23/25 06:30
Carbon Dioxide 26 mmol/L (22-30) 01/23/25 06:30
BUN 68 mg/dl (9-20) H 01/23/25 06:30
Creatinine 14.2 mg/dL (0.7-1.3) H* 01/23/25 06:30
eGFR 4.49 01/23/25 06:30
Glucose 88 mg/dl (70-99) 01/23/25 06:30
Calcium 8.8 mg/dl (8.4-10.2) 01/23/25 06:30
Phosphorus 8.7 mg/dl (2.5-4.5) H 01/22/25 05:26
Bhh-P-Wrtbtstlvqz Pept > 48971 pg/ml 01/20/25 22:17
Albumin 4.2 g/dl (3.5-5.0) 01/20/25 22:17
Physical Exam
-
Vital Signs:
Vital Signs
Temp Pulse Resp BP Pulse Ox
98 F 99 16 82/58 100
01/23/25 08:13 01/23/25 08:17 01/23/25 08:17 01/23/25 06:13 01/23/25 09:34
Cardiovascular:: Regular rate and rhythm
Respiratory:: Bilateral: CTA
Lung Excursion:: Normal
Abdomen:: Nontender and Soft
Extremity Edema:: None: Bilateral:
Hector Catheter: No
--- NOTE | 2025-01-23 11:47 | PTCARENOTE ---
Rec'd pt this AM. Requires much encouragement to cooperate with treatment plan. Some redirection required for using profanity. Educated pt on importance of cooperating wtih all care and testing. Also that he requires stable BP in order to safely
take PRN pain meds. Midodrine given in effort to improve BP. upset over diet, encourged to speak to his MD regarding his concerns. OOB at [facility], stalbe gait.
[2025-01-23] MEDS: RENVELA PO (12:53)
--- NOTE | 2025-01-23 13:12 | W.PN.HOSP.TC ---
Today's Communication/Plan
-
Monitor vital signs and see plan
VQ scan
Echo pending
Continue with IV heparin per pulmonary
Assessment / Plan
Assessment / Plan
A/P: Patient is a 24y M with PMH significant for ESRD on PD, HFrEF and anxiety / depression who presents to ED complaining of CALDWELL and fatigue.
LLL Pulmonary Embolism
- suspect that this represents residual / chronic thrombosis.
- Patient reports prior PE treated with 6 months of Eliquis.
-Ultrasound of the legs negative for DVT. Appreciate pulmonary input.
- Continue IV heparin for now. Defer to pulmonary regarding anticoagulation
- Check Echo.
- Further recommendations for chronic anticoagulation therapy after echo..
- Suspect there are other etiologies for his presenting complaints of CALDWELL and fatigue.
ESRD
- Long-standing ESRD on HD and changed to PD about 2 1/2 months ago.
- Ascites seen on CT scan c/w PD therapy.
- Labs noted with multiple electrolyte derangements.
- Prior h/o renal transplant which lasted about 4 years and failed due to non-compliance with antirejection med regimen.
- Nephrology following
- Follow I/Os, daily weights, etc.
Chronic HFrEF
- Clinically seems to be compensated
- Patient reports EF of 20%. Update Echo. Send to [facility] for records for review.
- Seems likely that recent increase in symptoms correlates with change to PD and ? less efficient dialysis.
- Cardiology following.
Abnormal Troponin
- Unknown type. Unknown baseline in this patient with ESRD.
- EKG with T wave inversions / NSST-T changes in lateral leads. No prior tracings here for comparison.
Echo pending
Awaiting records
Cardiology following
Anemia
- Suspect anemia of chronic disease / CKD - but no prior values for comparison.
- Follow H&H for any changes.
Generalized Anxiety / Depression
- Significant component of anxiety. Ativan PRN for now.
Restarted nortriptyline, pramipexole
DVT Prophylaxis: On therapeutic heparin at present.
Code Status: Full
General: Comfortable
Respiratory: Clear to Auscultation and Non Labored Respirations; Negative Accessory Resp Muscle Use
Cardiac: Regular Rhythm and S1/S2
GI: Soft, Nondistended, Normal Bowel Sounds, Tender (Some discomfort in the left side of the abdomen but no rebound guarding rigidity) and Other (PD catheter in place)
Neuro: AO x 3
Psych: Calm
Anticipated Discharge: Within 24 hours
Subjective/Interval History
-
Date of Service: January 23, 2025
Does complain of this atypical chest pain at times
Objective Data
-
Labs:
Laboratory Results
01/23/25 01/23/25
06:30 14:00
WBC 4.2 L
Hgb 8.0 L
Hct 24.3 L
Plt Count 171
APTT 50.2 H Pending
Sodium 132 L
Potassium 5.0
Chloride 93 L
Carbon Dioxide 26
BUN 68 H
Creatinine 14.2 H*
Glucose 88
Calcium 8.8
Vital Signs:
Vital Signs
Temp Pulse Resp BP Pulse Ox
98 F 107 22 101/67 100
01/23/25 08:13 01/23/25 12:43 01/23/25 12:43 01/23/25 12:43 01/23/25 11:47
I&O
01/22/25 01/23/25 01/24/25
06:59 06:59 06:59
Intake Total 1260 / 1260
Output Total 500 / 500 1500 / 1500 400 / 400
Balance 760 / 760 -1500 / -1500 -400 / -400
--- NOTE | 2025-01-23 13:35 | W.PN.CD ---
Today's Communication / Plan
-
Needs advanced heart failure. Will have him go back to [facility] or down to [facility] if he prefers.
Impression / Plan
-
24-year-old man with ESRD status post failed renal transplant, resumed on dialysis (initially hemodialysis but switched to peritoneal 2 months ago for worsening cardiomyopathy), HFrEF (EF 20%), prior PE who presents with dyspnea on exertion and
fatigue.
Head Silverman: Dr. Collins at [facility]
This is an unfortunate case. I spoke with his job lithographer at [employer] today by phone. He has not seen the patient in the office since around this time last year due to frequent hospitalizations. He states that in the past when he has
complained of shortness of breath, taking off extra fluid has helped. Cards has recommended dual heart/kidney transplant but patient does not want to undergo another surgery. The other option would be palliative dobutamine though this is tough
given the current national shortage. Dr. Collins would be happy to see him back. Unfortunately I do not think we have much to offer here as he needs an advanced failure specialist.
Cardiomyopathy/HFrEF
- TTE 01/23/2025: Severely dilated LV with EF 26% and global hypokinesis, moderate to severe MR, PASP 38 mmHg
- Not on GDMT due to baseline hypotension and ESRD
- Continue volume removal with PD
- He needs an advanced heart failure specialist. Previously followed at [facility]. I will refer him back there or down to [facility] if he prefers.
Chest pain
- Unclear etiology at this time. Atypical in nature. ECG with [facility]. Troponin is likely within normal limits given ESRD. No effusion to suggest pericarditis. CT and VQ scan negative for acute PE.
- Continue pain control per primary team
- I do not think this is cardiac chest pain
Shortness of breath
- Does not appear to be significantly volume overloaded. PASP close to normal which goes against CTEPH/PH.
- Volume removal with PD
H/o pulmonary embolism - unsure of timing and was taking Eliquis.
- Admission CT negative for acute PE. VQ scan also negative
- pulm following
ESRD - PD dependent currently
- Status post renal transplant 4 years ago, failed. He was on HD which was switched to PD a few months ago for worsening cardiomyopathy.
- Followed by nephrology at [facility].
- Nephrology consulted here.
Abnormal troponin - initial troponin 0.104, then 0.095.
- Suspect that this is a normal troponin given his level of ESRD
- Chest pain management as above
Anemia - acute on chronic.
- follow.
Anxiety/depression - chronic, unsure if taking meds as an outpatient.
Subjective: When I entered the room, he was sitting on his phone in no acute distress. He continues to report diffuse pain and shortness of breath with minimal exertion.
Physical Exam
Vital Signs/Labs
Vital Signs
Temp Pulse Resp BP Pulse Ox
98 F 107 22 101/67 100
01/23/25 08:13 01/23/25 12:43 01/23/25 12:43 01/23/25 12:43 01/23/25 11:47
01/22/25 01/23/25 01/24/25
06:59 06:59 06:59
Actual Weight 130 lb 122 lb 2.177 oz
01/23/25 06:30
01/23/25 06:30
PT 14.4 Sec (11.4-14.6) 01/20/25 22:17
INR 1.09 01/20/25 22:17
APTT 50.2 Sec (23.4-35.0) H 01/23/25 06:30
Magnesium 2.4 mg/dl (1.6-2.3) H 01/22/25 05:26
01/20/25
22:17
Zlj-Y-Gmufqnjrnvx Pept > 97898
LAB Results
01/20/25 01/21/25 01/21/25
22:17 07:27 12:08
Troponin I 0.104 H* 0.095 H* Cancelled
01/21/25
18:08
Troponin I Cancelled
Physical Exam
Constitutional: No acute distress and Comfortable
Cardiovascular: Rhythm & rate is regular, Pedal edema is absent, Systolic murmur present and S1S2 is normal
Respiratory: Respiratory effort normal and Lungs clear to auscul.
Neuro/Psych: AO x 3
Data Reviewed
-
Date of Service: January 23, 2025
Medical Decision Making: Reviewed Test Results, Independent Historian Assessment, Test Interpretation and Review of Case with other Provider
EKG: Tracing Personally Visualized and interpreted
Echo: Tracing Personally Visualized and interpreted and Report Reviewed by me
Labs: Labs Reviewed by me
Old Records: Reviewed
[2025-01-23 14:44] LABS: APTT 149.1 Sec (23.4-35.0)
[2025-01-23] MEDS: DUONEB INH (18:20)
[2025-01-23] MEDS: MIRAPEX 0.75 MG PO (21:04)
[2025-01-23] MEDS: PAMELOR 10 MG PO (21:04)
[2025-01-23 21:55] LABS: APTT 63.3 Sec (23.4-35.0)
[2025-01-24] VITALS (10 sets, daily range): BP systolic 82–98; BP diastolic 55–75; BMI 18.2
[2025-01-24] MEDS: HEPARIN 25000 UNITS/250 ML IV (00:07)
--- NOTE | 2025-01-24 02:49 | PTCARENOTE ---
Assumed care for patient overnight. Pt father brought in dinner, pt ate some of his dinner but then was feeling nauseated pt states he has not been eating much due to 'bad food.' Pt had an episode of emesis shortly after eating. AARON Hackett made
aware. Pt refusing Tigan injection. Pt offered sin marily which he does not want. PD completed w/ no issues; see worklist. NSR to sinus tach on the monitor w/ 1 degree AV block. Pt on RA, 96%. Pt c/o severe pain to L side mainly the side, medicated
w/ PRN Dilaudid. BP soft but pt states that is 'his normal'. Heparin gtt cont; see worklist. Pt restarted on psych meds. Pt ambulating to the bathroom, denies dizziness. Call ortega is within reach.
[2025-01-24] MEDS: DILAUDID 0.5 MG IV ×2 (03:25→08:31)
--- NOTE | 2025-01-24 03:31 | PTCARENOTE ---
SBP in the 80s. PRN Midodrine administered, see MAR.
[2025-01-24 04:38] LABS: Hematocrit 25.8 % (39.0-52.0); Hemoglobin 8.5 g/dL (13.0-18.0); Mean Corp Hgb Conc. 32.9 g/dL (33.0-37.0); Mean Corpuscular Volume 101.6 fL (80.0-94.0); Nucleated Red Blood Cells % 0 % (-); Platelet Count 174 10^3/uL (130-400); Red Cell Dist. Width 13.9 % (11.5-14.5)
[2025-01-24 04:55] LABS: Blood Urea Nitrogen 60 mg/dl (9-20); Calcium 9.2 mg/dl (8.4-10.2); Carbon Dioxide 29 mmol/L (22-30); Chloride 92 mmol/L (98-107); Glucose 104 mg/dl (70-99); Potassium 4.5 mmol/L (3.5-5.1); Sodium 135 mmol/L (135-145)
[2025-01-24 04:57] LABS: APTT 187.4 Sec (23.4-35.0)
[2025-01-24 05:10] LABS: Estimated Creatinine Clearance 7 ml/min; eGFR 4.65
[2025-01-24] MEDS: DUONEB INH (07:43)
[2025-01-24] MEDS: RENVELA PO ×3 (08:20→17:16)
[2025-01-24] MEDS: TESSALON PERLES 200 MG PO ×2 (08:20→16:28)
--- NOTE | 2025-01-24 08:48 | W.PN.CD ---
Today's Communication / Plan
-
No new CV recommendations
He does not want referral to [facility] for transplant eval
He is considering going back to [facility] vs [facility]
We will sign off please call with questions/concerns.
Impression / Plan
-
24-year-old man with ESRD status post failed renal transplant, resumed on dialysis (initially hemodialysis but switched to peritoneal 2 months ago for worsening cardiomyopathy), HFrEF (EF 20%), prior PE who presents with dyspnea on exertion and
fatigue.
Technology Assistant: Dr. Collins at [facility]
Cardiomyopathy/HFrEF
- TTE 01/23/2025: Severely dilated LV with EF 26% and global hypokinesis, moderate to severe MR, PASP 38 mmHg
- Not on GDMT due to baseline hypotension and ESRD
- Continue volume removal with PD
- He needs an advanced heart failure specialist. Previously followed at [facility].
- HE continues to not want advanced therapies or another surgery; he feels that he was not getting good care at [facility] he will think about either transferring to [facility] vs going back to [facility]
Chest pain
- stable
Shortness of breath
- Does not appear to be significantly volume overloaded. PASP close to normal which goes against CTEPH/PH.
- Volume removal with PD
H/o pulmonary embolism - unsure of timing and was taking Eliquis.
- Admission CT negative for acute PE. VQ scan also negative
- pulm following
ESRD - PD dependent currently
- Status post renal transplant 4 years ago, failed. He was on HD which was switched to PD a few months ago for worsening cardiomyopathy.
- Followed by nephrology at [facility] health system.
- Nephrology consulted here.
Abnormal troponin - initial troponin 0.104, then 0.095.
- Suspect that this is a normal troponin given his level of ESRD
- Chest pain stable
Anemia - acute on chronic.
- follow.
Anxiety/depression - chronic, unsure if taking meds as an outpatient.
Subjective: Overall, feeling tired this AM and frustrated
Physical Exam
Vital Signs/Labs
Vital Signs
Temp Pulse Resp BP Pulse Ox
97.8 F 83 22 86/66 99
01/24/25 03:31 01/24/25 07:43 01/23/25 22:19 01/24/25 08:31 01/24/25 04:00
01/23/25 01/24/25 01/25/25
06:59 06:59 06:59
Actual Weight 122 lb 2.177 oz 123 lb 7.342 oz
01/24/25 04:26
01/24/25 04:26
PT 14.4 Sec (11.4-14.6) 01/20/25 22:17
INR 1.09 01/20/25 22:17
APTT 187.4 Sec (23.4-35.0) H* 01/24/25 04:26
Magnesium 2.4 mg/dl (1.6-2.3) H 01/22/25 05:26
01/20/25
22:17
Grr-F-Uxmbuylmvda Pept > 26647
LAB Results
01/21/25 01/21/25
12:08 18:08
Troponin I Cancelled Cancelled
Physical Exam
Constitutional: No acute distress and Comfortable
EENT: Anicteric
Cardiovascular: Rhythm & rate is regular and Pedal edema is absent
Respiratory: Respiratory effort normal and Lungs clear to auscul.
GI: Soft
Neuro/Psych: AO x 3
Data Reviewed
-
Date of Service: January 24, 2025
Medical Decision Making: Reviewed Test Results
EKG: Tracing Personally Visualized and interpreted (sr)
Labs: Labs Reviewed by me
--- NOTE | 2025-01-24 09:56 | W.PN.PUL.V3 ---
Today's Communication / Plan
-
Lower extremity ultrasound and VQ scan reviewed
Analgesia per primary service
Can discontinue anticoagulation
Assessment
-
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
history of PE s/p AC with Eliquis for 6 months, chronic HFrEF, anxiety/depression who presents with worsening cough and left lower anterior chest pain for 2 weeks. He thinks that he may be dealing with a cold. He usually gets his care done at
[facility] but did not want to go there. He felt that he was having another PE as he was experiencing focal pain that was severe on his left lower anterior chest. In the ER he was afebrile with pulse rate 108, respiratory rate 17�22, BP was low
at 90/65 and he was saturating 100% on room air. Labs showed normal WBC at 5.9, Hb 9.1, serum sodium 129, potassium 5.4, creatinine 13.7, serum bicarbonate level 29, troponin 0.104, proBNP >27,000, and CTA chest showed a somewhat linear partial
filling defect in the left lower lobe with concern for subsegmental PE. He was given Ativan in the ER + fentanyl and started on heparin drip and then admitted to the IMU. Given this concern for a chronic/remote PE, pulmonary service now consulted
for additional management/recommendations.
Chronic conditions ANSWERER: ESRD on PD, chronic HFrEF, anxiety/depression, history of PE s/p 6 months of Eliquis, vaping/THC use
Impression:
#SOB with left lower anterior focal chest pain
#Elevated troponin likely due to demand ischemia
#Linear partial filling defect in subsegmental left lower lobe pulmonary artery with concern for remote/chronic PE
#Mosaic attenuation seen on CT chest from 01/21/2025 -differential includes interstitial edema vs obstructive airway disease vs interstitial pneumonia/pneumonitis vs infection (doubtful)
#Cardiomegaly with LV dilatation and without RV enlargement
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
#History of chronic HFrEF
#History of PE s/p anticoagulation with Eliquis x 6 months
#Anemia
#Hypochloremic, hyponatremia
Plan:
Respiratory status is about the same-continues to complain of pleuritic left anterior chest pain
Supplemental oxygen as needed-currently
Nebulizers if needed-currently not bronchospastic
Tessalon Perles
CT chest 01/21/2025-no evidence for pulmonary embolism, probable sequelae of remote/chronic pulmonary embolism medial left lung base
Lower extremity ultrasound 01/21/2025-negative for DVT
VQ scan 01/23/2025-low probability for pulmonary embolus
Echocardiogram 01/23/[id number] DuoNebs
Eventual spirometry
Currently on heparin drip-no evidence for clots-can discontinue anticoagulation
History of cardiomyopathy
Follow atypical chest pain
Troponin trended
Cardiology evaluation ongoing-correspondence reviewed
Nephrology following-correspondence reviewed
Continues on peritoneal dialysis
Monitor hemoglobin
Transfuse if needed
Monitor blood sugar
Insulin supplementation as needed
DVT prophylaxis-on heparin drip
Nutrition
Early mobilization
Patient without evidence for clots-anticoagulation can be discontinued-reviewed with hospitalist
Outpatient pulmonary follow-up
Reviewed with nursing
Data:
CTA chest 01/21/2025:
No evidence of acute pulmonary embolism. Probable sequela of remote/chronic pulmonary embolism in the medial left lung base subsegmental pulmonary artery.
Cardiomegaly with left ventricular dilatation and slightly prominent left atrium.
No evidence of pneumonia. Mild air trapping at the lung bases.
Mild upper abdominal ascites.
Incidental rugger jersey spine, which is associated with secondary hyperparathyroidism as a result of underlying chronic kidney disease.
Subjective Data
-
Date of Service:
Date of Service: January 24, 2025
Chief Complaint: Pulmonary Follow Up and Dyspnea Follow Up
Subjective:
Continues to have some pleuritic left anterior chest pain, no complaints of shortness of breath at rest, abdominal pain
Review of Systems
General: Other (Per HPI)
Objective Data
Data Reviewed
Vital Signs / I&O:
Vital Signs
Temp Pulse Resp BP Pulse Ox
97.6 F 90 22 86/66 99
01/24/25 07:50 01/24/25 08:26 01/23/25 22:19 01/24/25 08:31 01/24/25 04:00
Intake and Output
01/23/25 01/24/25 01/25/25
06:59 06:59 06:59
Intake Total 480 / 480
Output Total 1500 / 1500 950 / 950
Balance -1500 / -1500 -470 / -470
SaO2: 99
Physical Exam
General: Respiratory Distress (negative), Comfortable, Chills (negative) and Sweats (negative)
HEENT: Normocephalic and Anicteric
Cardiovascular: Regular Rhythm and Peripheral Edema (negative)
Respiratory: Wheeze (negative), Crackles (negative), Rhonchi (negative), Non-Labored Respirations and Other (No tenderness to palpation of anterior chest/ribs)
GI: Soft, Non Distended, Non Tender and Normal Bowel Sounds
Neurology: Awake, Alert, Oriented and No Motor Deficits
Skin: Warm, Dry, Cyanosis (negative), Jaundice (negative) and Rash (n)
Labs/Micro/Reports
Lab Data
01/24/25 04:26
01/24/25 04:26
Laboratory Results
01/23/25 01/23/25 01/24/25
14:19 21:18 04:26
APTT 149.1 H 63.3 H 187.4 H*
Microbiology
01/21/25 17:41 Peritoneal Fluid Body Fluid Culture - Preliminary
01/21/25 17:41 Peritoneal Fluid Gram Stain - Preliminary
01/20/25 22:17 Blood/Venous Blood Culture - Preliminary
No Growth in 72 hours- Final report to follow
--- NOTE | 2025-01-24 10:34 | W.PN.HOSP.TC ---
Addendum entered and electronically signed by Christian Beaver MD 01/25/25 11:57:
Discussed with nephrology regarding peritoneal sampling culture. No need to report this as there is no infection.
Underweight
Addendum entered and electronically signed by Christian Beaver MD 01/24/25 12:33:
Discussed with pulmonary. No reason for anticoagulation as VQ scan is low probability. Patient was advised to follow-up at transplant center however he refused.
Time of discharge 38 minutes
Original Note:
Today's Communication/Plan
-
Monitor vital signs see plan
Pulmonary following
Patient denied following up at transplant center
PD per nephrology
possible dc today
Assessment / Plan
Assessment / Plan
A/P: Patient is a 24y M with PMH significant for ESRD on PD, HFrEF and anxiety / depression who presents to ED complaining of CALDWELL and fatigue.
LLL Pulmonary Embolism
- suspect that this represents residual / chronic thrombosis.
- Patient reports prior PE treated with 6 months of Eliquis.
-Ultrasound of the legs negative for DVT. Appreciate pulmonary input.
- on IV heparin for now. Defer to pulmonary regarding anticoagulation
VQ scan low prob
has pleurisy
- Suspect there are other etiologies for his presenting complaints of CALDWELL and fatigue.
ESRD
- Long-standing ESRD on HD and changed to PD about 2 1/2 months ago.
- Ascites seen on CT scan c/w PD therapy.
- Labs noted with multiple electrolyte derangements.
- Prior h/o renal transplant which lasted about 4 years and failed due to non-compliance with antirejection med regimen.
- Nephrology following
- Follow I/Os, daily weights, etc.
Chronic HFrEF
- Clinically seems to be compensated
- Patient reports EF of 20%. echo 01/23 with severely dilated LV with EF 26% and global hypokinesis, moderate to severe MR. Cardiology discussed with patient regarding following up at a transplant center however patient refused.
Send to [facility] for records for review.
- Seems likely that recent increase in symptoms correlates with change to PD and ? less efficient dialysis.
- Cardiology following.
Abnormal Troponin
- Unknown type. Unknown baseline in this patient with ESRD.
- EKG with T wave inversions / NSST-T changes in lateral leads. No prior tracings here for comparison.
Awaiting records
Cardiology following, no signs of pericarditis.
Anemia
- Suspect anemia of chronic disease / CKD - but no prior values for comparison.
- Follow H&H for any changes.
Generalized Anxiety / Depression
- Significant component of anxiety. Ativan PRN for now.
Restarted nortriptyline, pramipexole
DVT Prophylaxis: On therapeutic heparin at present.
Code Status: Full
General: Comfortable
Respiratory: Clear to Auscultation and Non Labored Respirations; Negative Accessory Resp Muscle Use
Cardiac: Regular Rhythm and S1/S2
GI: Soft, Nondistended, Normal Bowel Sounds, and Other (PD catheter in place)
Neuro: AO x 3
Psych: Calm
Anticipated Discharge: Today
Subjective/Interval History
-
Date of Service: January 24, 2025
denies nausea
Objective Data
-
Labs:
Laboratory Results
01/24/25 01/24/25
04:26 12:15
WBC 4.1 L
Hgb 8.5 L
Hct 25.8 L
Plt Count 174
APTT 187.4 H* Pending
Sodium 135
Potassium 4.5
Chloride 92 L
Carbon Dioxide 29
BUN 60 H
Creatinine 13.8 H*
Glucose 104 H
Calcium 9.2
Vital Signs:
Vital Signs
Temp Pulse Resp BP Pulse Ox
97.6 F 90 22 86/66 99
01/24/25 07:50 01/24/25 08:26 01/23/25 22:19 01/24/25 08:31 01/24/25 09:56
I&O
01/23/25 01/24/25 01/25/25
06:59 06:59 06:59
Intake Total 480 / 480
Output Total 1500 / 1500 950 / 950
Balance -1500 / -1500 -470 / -470
--- NOTE | 2025-01-24 11:26 | W.PN.NEPH.PH ---
Today's Communication / Plan
-
PD orders provided
Possible discharge today
Patient has refused advanced workup and/or treatment at transplant center for heart per review of cardiology note
Assessment/Plan
-
IMP:
LLL Pulmonary Embolism-chr
ESRD on PD-[place]
HYponatremia
Hyperkalemia
Hypotension
Prior h/o renal transplant which lasted about 4 years and failed due to non-compliance
Chronic HFrEF EF 20%
Abnormal Troponin
Anemia
Generalized Anxiety / Depression
Secondary hyperparathyroidism
Plan:
now off heparin drip for suspected left lower lung pulmonary embolus but VQ scan was low probability
A/w sob CT noted chr PE, switch to PD over 1yr ago due to suspected worsening CHF and AVF ligated
no sig hypervolemia on exam other than CALDWELL
PD flowsheets reviewed
continue PD all 2.5% , Q4h exchange and FV 2lit , reviewed PD flowsheet, UF 200 cc negative H psych
strict renal diet and FR for electrolyte issues-expect to see some improvement
Bp are very soft with known Reduced EF ,cont midodrine and await records from [place], checked cortisol, bld cx neg
anemia -adequate fe stores, had FABRICIO 3day [employer]
hyperkalemia-s/p Lokelma, currently stable at 4.5
hyponatremia-dilutional , stay with FR, now with sodium of 135
Hyperphosphatemia-maintain renvela
PD fluid with out infection
poor long term prognosis
Unfortunately we have no more new recommendations nor do I feel we can improve his ESRD care at this time
d/w primary, pt and nursing in detail
-
-
Date of Service: January 24, 2025
CC / HPI / ROS
-
Chief Complaint:
ESRD
History of Present Illness:
k at 5., sodium up to 135
Hemoglobin at 8.5
Hemodynamically unstable with systolic blood pressure at 82
Remains on heparin drip
Review of Systems:
still CALDWELL
no n/v
no abd pain
Labs
-
Labs:
WBC 4.1 10^3/uL (4.8-10.8) L 01/24/25 04:26
RBC 2.54 10^6/uL (4.70-6.10) L 01/24/25 04:26
Hgb 8.5 g/dL (13.0-18.0) L 01/24/25 04:26
Hct 25.8 % (39.0-52.0) L 01/24/25 04:26
Plt Count 174 10^3/uL (130-400) 01/24/25 04:26
Sodium 135 mmol/L (135-145) 01/24/25 04:26
Potassium 4.5 mmol/L (3.5-5.1) 01/24/25 04:26
Chloride 92 mmol/L (98-107) L 01/24/25 04:26
Carbon Dioxide 29 mmol/L (22-30) 01/24/25 04:26
BUN 60 mg/dl (9-20) H 01/24/25 04:26
Creatinine 13.8 mg/dL (0.7-1.3) H* 01/24/25 04:26
eGFR 4.65 01/24/25 04:26
Glucose 104 mg/dl (70-99) H 01/24/25 04:26
Calcium 9.2 mg/dl (8.4-10.2) 01/24/25 04:26
Phosphorus 8.7 mg/dl (2.5-4.5) H 01/22/25 05:26
Dqp-U-Ypydzvyidvk Pept > 86746 pg/ml 01/20/25 22:17
Albumin 4.2 g/dl (3.5-5.0) 01/20/25 22:17
Physical Exam
-
Vital Signs:
Vital Signs
Temp Pulse Resp BP Pulse Ox
97.6 F 90 22 86/66 99
01/24/25 07:50 01/24/25 08:26 01/23/25 22:19 01/24/25 08:31 01/24/25 09:56
Cardiovascular:: Regular rate and rhythm
Respiratory:: Bilateral: CTA
Lung Excursion:: Normal
Abdomen:: Nontender and Soft
Extremity Edema:: None: Bilateral:
Hector Catheter: No
--- NOTE | 2025-01-24 11:44 | PTCARENOTE ---
Assumed care of patient at beginning of this shift from previous RN with IV heparin infusing at 1100 units/hr. Dr Sorenson and Dr Beaver rounded this morning; confirmed with both that IV heparin can be d/c'd. PD treatment given without difficulty. BP
continues to run low; midodrine given as per prn dose. IV dilaudid given for L chest area pain that patient states continues and is no different than the pain he has been experiencing this admission. Dr Sorenson made aware when rounding on patient.
Dr Beaver verbalized that patient will be discharged today. Patient requested that PD is done prior to discharge and that he is not emptied before leaving. Dr Hudson made aware when on unit to see patient; ok to not drain patient before he leaves.
He stated his father will be picking him up and will not be here until 5pm. See worklist for full assessment and vital signs.
--- NOTE | 2025-01-24 12:32 | W.DCSUMMARY ---
Discharge Summary
Discharge Data
Date of Admission: 01/21/25
Date of Discharge: 01/24/25
-
Pending Results: No
Hospital Course
24-year-old male with past medical history of ESRD on peritoneal dialysis, kidney transplant complicated by rejection, pulmonary embolism was on anticoagulation, chronic heart failure with reduced EF, anxiety, depression, cardiomyopathy came to the
hospital with worsening cough and left lower anterior chest pain. CT scan was initially done which showed mosaic attenuation. Patient was seen by pulmonary throughout hospitalization. On CT chest there was concern of sequela of remote/chronic
pulmonary embolism. Pulmonary recommended VQ scan which was done which showed low probability of pulmonary embolism. Patient was initially on IV heparin however after the studies, pulmonary recommended no further anticoagulation is needed.
Patient was also seen by cardiology. Echocardiogram was done which showed reduced EF and cardiomyopathy. Cardiology recommended patient to follow-up with the transplant center however patient refused. Cardiology instructed patient to follow-up
with his physicians at [facility]. While patient was here patient also required peritoneal dialysis. After multiple evaluations done by multiple specialist, patient was discharged home with instructions to follow-up with all his physicians
outpatient.
Discharge Plan
-
Patient Disposition: Home (Routine Discharge)
Discharge Diagnosis/Procedures: Pleurisy
ESRD on peritoneal dialysis
Chronic congestive heart failure with reduced ejection fraction
Cardiomyopathy
Anemia
Generalized anxiety/depression
Condition: Fair
Diet: 2 Gram Sodium and Other diet
Additional Diets: 40 ounce fluid restriction
Activity: As tolerated
Activity Restrictions/Additional Instructions:
Follow-up with your physicians at [facility]
Referrals:
Damien Akhtar MD [Active, Pulmonary Medicine] - in three to four weeks
UNKNOWN - PT DOES,NOT KNOW [Family Provider, Internal Medicine] - in less than 1 week
Prescriptions:
New
acetaminophen 325 mg Tablet
650 mg PO Q4HPRN PRN (Reason: Mild Pain / Temp > 101) Qty: 0 0RF
midodrine 5 mg Tablet
5 mg PO TID PRN (Reason: SBP < 90 mmHg) Qty: 60 0RF
benzonatate 100 mg Capsule
200 mg PO TID Qty: 14 0RF
dextromethorphan-guaifenesin 10-100 mg/5 mL Syrup
5 ml PO Q4HPRN PRN (Reason: cough) Qty: 0 0RF
oxycodone 5 mg Tablet
5 mg PO Q4HPRN PRN (Reason: moderate to severe pain) Qty: 10 0RF
albuterol sulfate [Ventolin HFA] 90 mcg/actuation HFA aerosol inhaler
2 puff inhalation Q6H PRN (Reason: shortness of breath or wheezing) Qty: 6.7 0RF
Continued
pramipexole 0.75 mg Tablet
0.75 mg PO HS
nortriptyline 10 mg Capsule
10 mg PO HS
clonazepam 0.5 mg Tablet
0.5 mg PO TID PRN (Reason: anxiety)
cinacalcet 90 mg Tablet
90 mg PO DAILY
calcium acetate(phosphat bind) 667 mg Capsule
1,334 mg PO TID
Rx Instructions:
with meals
Xphozah 30 mg Tablet
TID
Rx Instructions:
with meals with phoslo
Discharge Orders:
Discharge Patient (As Directed); Ordered 01/24/25
Ordered By: Christian Beaver
Discharge Date and Time
Discharge Date/Time: 01/24/25 18:53
Print Language: SAMI
--- NOTE | 2025-01-24 14:11 | CM ---
F/U: Patient is discharging and has no discharge needs. IMM completed. PLAN: Home No Needs.
--- NOTE | 2025-01-24 14:44 | PN.CDI ---
CDI
- -
CDI:
Physician Documentation Request
Admit Date: 01/21/25 03:39
Dear Doctor Sd,
Clinical Indicators:
Height: 5 ft 9 in
Weight: 123 lbs 7.3 oz
BMI: 18.2
01/24 consult, 'BMI: 18.2 (underweight)'
If possible, please provide an associated diagnosis related to the abnormal BMI(< or = to 19), such as:
Underweight
Cachectic
Other, please specify
Use of terms such as suspected, likely, concern for, or probable (associated with a specific diagnosis that is being evaluated, monitored, or treated as if it exists) are acceptable and can be coded in the inpatient setting, when documented at the
time of discharge.
Thank you,
SID Sow RN
CDI Specialist
available via tiger text
Please use your independent medical judgment in providing your response.
--- NOTE | 2025-01-24 17:23 | PTCARENOTE ---
Patient for discharge; states father will pick him up after he is done work.
--- NOTE | 2025-01-24 18:21 | PTCARENOTE ---
Patient states he father is on the way; lives in [place]. IVs d/c'd. Discharge instructions and med list provided; patient denies questions. Next time due for PD written on d/c instruction sheet.
== END 2025-01-24 18:53 | disposition home or self-care (01) | DRG 175 ==
LOC: IMU 03:39
PROVIDERS: Emergency Medicine; Internal Medicine; ADMITTING PHYSICIAN Hospitalist; ATTENDING PHYSICIAN Internal Medicine; CONSULT PHYSICIAN Internal Medicine; CONSULT PHYSICIAN Internal Medicine Critical Care Medicine; EMERGENCY PHYSICIAN Student in an Organized Health Care Education/Training Program; OTHER PHYSICIAN Student in an Organized Health Care Education/Training Program
DX: I26.99 Other pulmonary embolism without acute cor pulmonale (principal); N18.6 End stage renal disease; I50.22 Chronic systolic (congestive) heart failure; I42.9 Cardiomyopathy, unspecified; E87.1 Hypo-osmolality and hyponatremia; Z94.0 Kidney transplant status; T86.11 Kidney transplant rejection; T86.12 Kidney transplant failure; E46 Unspecified protein-calorie malnutrition; Z68.1 Body mass index [BMI] 19.9 or less, adult; Z99.2 Dependence on renal dialysis; D63.1 Anemia in chronic kidney disease; F32.A Depression, unspecified; F41.1 Generalized anxiety disorder; E87.5 Hyperkalemia; E87.8 Other disorders of electrolyte and fluid balance, not elsewhere classified; Z86.711 Personal history of pulmonary embolism; Z79.899 Other long term (current) drug therapy; F17.290 Nicotine dependence, other tobacco product, uncomplicated
CPT/HCPCS: 71046; 71275; 78582; 80048; 80053; 82140; 82533; 82607; 82728; 82746; 83036; 83540; 83550; 83605; 83735; 83880; 84100; 84443; 84484; 85025; 85027; 85610; 85730; 87015; 87040; 87070; 87147; 87186; 87205; 89051; 93005; 93306; 93970; 94640; 96365; 96366; 96375; 99291; A9540; A9567; Q9967